=== PATIENT | female | born 2000 | race Caucasian/White ===

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

== ENCOUNTER 2022-08-13 10:51 | Outpatient (CLI) | payer MEDICAID, SELFPAY ==
--- NOTE | 2022-08-13 11:14 | XR_ITS ---
WS: [id number] Exam: XR abdomen 1V* [id number] Date/Time of Exam: 08/13/2022 11:33 AM Reason For Exam: R19.7 - Diarrhea, unspecified No bowel obstruction or free air. No sign of organ enlargement. Regional bony elements appear normal. XR/XR abdomen 1V* [id number] IMPRESSION: 1. No acute abdominal finding. Negative.
--- NOTE | 2022-08-13 11:14 | XRR_ITS ---
PROCEDURE INFORMATION: Exam: XR Entire Spine Exam date and time: 08/13/2022 11:29 AM Age: 22 years old Clinical indication: [place]; Patient HX: Pain in upper and lower back for 1 year, diarrhea, lower abdomen pain, nausea and vomiting every morning, 1 year; Additional info: M43.9 - deforming dorsopathy, unspecified TECHNIQUE: Imaging protocol: XR of the entire spine. Evaluation for scoliosis or surgical evaluation. Views: 4 or 5 views. COMPARISON: CR XR scoliosis survey [id number] 08/10/2017 12:45 PM FINDINGS: Bones/joints: Normal. No acute fracture. Normal alignment. No scoliosis. XR/XR scoliosis survey - [id number] IMPRESSION: Unremarkable spine.
[2022-08-13 11:18] LABS: Erythrocyte Sedimentation Rate 14 mm/hr (0-15)
[2022-08-13 11:22] LABS: Hematocrit 39.8 % (37.0-47.0); Hemoglobin 12.5 g/dL (11.5-15.3)
[2022-08-13 11:38] LABS: Estmated Average Glucose 128; Hemoglobin A1C 6.1 % (4.0-6.0)
[2022-08-13 11:50] LABS: Alanine Aminotransferase 15 U/L (0-33); Alkaline Phosphatase 89 U/L (35-105); Anion Gap 18.9 (5-19); Aspartate Amino Transferase 18 U/L (0-32); Blood Urea Nitrogen 7 mg/dL (6-20); C Reactive Protein 18.4 mg/L (0.0-4.9); Calcium 8.7 mg/dL (8.5-10.5); Carbon Dioxide 20 mmol/L (22-29); Chloride 101 mmol/L (98-107); Chol HDL Ratio 4.26 mg/dL (0.0-4.40); Cholesterol 166 mg/dL (0-200); Ferritin 46 ng/mL (15-150); Glomerular Filtration Rate 203.5 mL/min (90-130); Glucose 116 mg/dL (65-115); HDL Cholesterol 39 mg/dL (60-100); Osmolality Calculated 281 mOsm/kg (285-295); Potassium 3.9 mmol/L (3.5-5.1); Sodium 136 mmol/L (136-145); Total Bilirubin 0.2 mg/dL (0.15-1.2); Triglycerides 406 mg/dL (0-150)
[2022-08-13 12:06] LABS: LDL Cholesterol Direct 71 mg/dL (0-100)
[2022-08-13 12:14] LABS: Free T4 Free Thyroxine 0.89 ng/dL (0.82-1.77)
== END 2022-08-13 10:52 | disposition home or self-care (01) ==
LOC: LAB 10:55
PROVIDERS: PCP Nurse Practitioner; Visit Provider Student in an Organized Health Care Education/Training Program
DX: Z00.00 Encounter for general adult medical examination without abnormal findings (principal); K58.2 Mixed irritable bowel syndrome; R23.1 Pallor; R19.7 Diarrhea, unspecified
CPT/HCPCS: 36415; 72083; 74018; 80053; 80061; 82728; 83036; 83721; 84439; 84443; 85014; 85018; 85651; 86140

== ENCOUNTER 2022-09-03 08:58 | Outpatient (CLI) | payer MEDICAID, SELFPAY ==
--- NOTE | 2022-09-03 12:30 | US_ITS ---
WS: [id number] RIGHT UPPER QUADRANT ULTRASOUND HISTORY: R10.11 - Right upper quadrant pain COMPARISON: Prior CT 06/13/2019 Liver: 16.3 cm in length. Normal size liver. Hypoechoic nodule in the posterior RIGHT lobe the liver just above the kidney measures 2.1 x 1.9 cm. There is no increased vascularity. Is not definitely vira ntified on the prior CT from 06/13/2019. Portal Vein: Normal hepatopetal flow with monophasic waveform. Gallbladder: Normally distended gallbladder with no stones or wall thickening. CBD: 0.3 cm Pancreas: Normal size and echogenicity. Right kidney: 12.2 cm in length. Normal size and echogenicity. No hydronephrosis or mass. Aorta and IVC: Unremarkable abdominal aorta and IVC. No ascites. US/US gall bladder [id number] IMPRESSION: 1. Negative gallbladder. 2. Single hypoechoic mass in the RIGHT lobe the liver measuring 2.1 x 1.9 cm. No abnormality was noted on the prior CT from 2019. This may be complex cysts o r hemangioma. Focal fatty sparing may also be present. Consider ultrasound foll ow-up in [address] abdomen (arterial and portal venous phases).
== END 2022-09-03 08:59 | disposition home or self-care (01) ==
LOC: RAD 09:01
PROVIDERS: PCP Nurse Practitioner; Visit Provider Nurse Practitioner
DX: R10.11 Right upper quadrant pain (principal); R19.7 Diarrhea, unspecified; R16.0 Hepatomegaly, not elsewhere classified
CPT/HCPCS: 76705

== ENCOUNTER 2023-02-28 11:05 | Emergency (ER) | payer MEDICAID, SELFPAY ==
--- NOTE | 2023-02-28 11:15 | XRR_ITS ---
PROCEDURE INFORMATION: Exam: XR Nasal Bones Exam date and time: 02/28/2023 11:26 AM Age: 22 years old Clinical indication: Pain and injury or trauma; Patient HX: Nose pain/swelling after knee to nose TECHNIQUE: Imaging protocol: XR of the nasal bones. Views: Minimum of 3 views COMPARISON: No relevant prior studies available. FINDINGS: Sinuses: Well aerated. No opacification. Bones/joints: No fracture. Soft tissues: Unremarkable. XR/XR nasal bones min 3V [id number] IMPRESSION: Unremarkable.
[2023-02-28 11:17] VITALS: BP 156/78; PULSE 77; RESP 18; TEMP 36.8; O2SAT 98; BMI 29.8
--- NOTE | 2023-02-28 11:22 | ED_ITS ---
HPI - General Adult General: Chief complaint: General Medical Stated complaint: possible broken nose Time Seen by Provider: 02/28/23 11:15 Source: patient Mode of arrival: ambulatory History of Present Illness: 22-year-old female presents emergency room with mild discomfort to the nose she said she was kneed in the nose while wrestling with her brother she did not lose consciousness no other injuries Onset (ago): day(s) Location: head Relieving factors: none Exacerbating factors: none Associated symptoms: Deny confusion or rash Treatments prior to arrival: none Review of Systems ENMT: Denies: nasal discharge, nasal congestion, nasal obstruction or epistaxis Musc: Denies: neck pain Skin/Breast: Denies: rash Neuro: Denies: confusion PFSH ED PFSH: Medical History Adolescent depression Constipation Iron deficiency anemia Irregular periods No pertinent past medical history neghx: htn,dm,thyroid,dvt/pe Surgical History History of esophagogastroduodenoscopy (EGD) (~2019) Family History (Updated 08/20/22 @ 10:12 by YOLY Napoles) Mother Cervical cancer dx age 21 Pre-diabetes Grandmother Diabetes Maternal and Paternal Grandfather Heart disease Maternal Brother Hypertension Denies family history of Colon cancer Ovarian cancer Hypercholesteremia Breast cancer Bleeding disorder Uterine cancer Stroke Social History Substance/Drug Use: never Do you think of yourself as: Straight/Heterosexual Female Reproductive History: Para: 0 Spontaneous abortions: No Physical Exam Const: GENERAL APPEARANCE: cooperative and comfortable ORIENTATION/CONSCIOUSNESS: Yes awake, Yes oriented to person, Yes oriented to place and Yes oriented to time HENMT: COMMON NORMALS: normocephalic and hearing grossly normal bilaterally HEAD & SCALP: normocephalic OTHER: Mild ecchymosis across the bridge of the nose no deformity Resp: COMMON NORMALS: normal respiratory effort, No retractions and No use of accessory muscles Extremity: COMMON NORMALS: normal to inspection, capillary refill normal, no clubbing, cyanosis or edema, no calf tenderness and no pedal edema Neuro: SENSORIUM/ORIENTATION: Yes oriented to person, Yes oriented to place and Yes oriented to time Skin: COMMON NORMALS: no rashes or lesions noted GENERAL SKIN EXAM: no rashes or lesions noted Course Vital Signs: Vital signs: Vital Signs Temperature 98.2 F 02/28/23 11:17 Pulse Rate 77 02/28/23 11:17 Respiratory Rate 18 02/28/23 11:17 Blood Pressure 156/78 02/28/23 11:17 Pulse Oximetry 98 02/28/23 11:17 Oxygen Delivery Me thod Room Air 02/28/23 11:17 MDM - General Adult Medical Decision Making No fracture no deformity no swelling very subtle ecchymosis across the bridge of the nose. X-ray does not show any displaced fracture ice ibuprofen follow-up as needed Medical Records I reviewed the patient's medical records. Lab Data I reviewed the patient's lab results. Radiology Impressions Nasal Bones X-Ray 02/28/23 11:15 IMPRESSION: Unremarkable. XR interpretation done by ED provider, pending radiology final review Discharge Plan Discharge Patient Disposition: Home Clinical Impression: Contusion of nose Condition: Stable Prescriptions: No Action fluticasone propionate 50 mcg/actuation spray,suspension 1 spray intranasal BID 7 Days Qty: 15.8 0RF Rx Instructions: administer into each nostril twice daily; use sterile nasal saline first Xulane 150-35 mcg/24 hr patch weekly 1 patch TRANSDERMA Q7D Qty: 9 3RF hydroxyzine HCl 10 mg tablet 5 mg PO TID PRN (Reason: anxiety) Qty: 30 0RF Rx Instructions: Take 1/2 tablet every 6-8 hours as needed for anxiety dicyclomine 10 mg capsule 10 mg PO TID 30 Days Qty: 90 0RF Rx Instructions: 1 tab by mouth 20-30 mins prior to eating 3 x daily Discharge Orders: Discharge ED (Routine); Ordered 02/28/23 Ordered By: Rodrigo Gomez Referrals: Cassi Rae FNP-BC [Primary Care Provider] - Discharge Diet: Usual diet Discharge Activity: Increase activity as tolerated Patient Instructions: Opioid Safety, Pain Management Coding Level of Care Code 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
[2023-02-28 12:22] VITALS: BP 115/82; PULSE 80; RESP 16; O2SAT 98
== END 2023-02-28 12:23 | disposition home or self-care (01) ==
PROVIDERS: Emergency Provider Family Medicine; PCP Nurse Practitioner
DX: S00.33XA Contusion of nose, initial encounter (principal); W50.0XXA Accidental hit or strike by another person, initial encounter; Y93.83 Activity, rough housing and horseplay
CPT/HCPCS: 70160; 99283

== ENCOUNTER 2023-03-05 10:08 | Outpatient (CLI) | payer MEDICAID, SELFPAY ==
[2023-03-05 10:39] LABS: Estmated Average Glucose 105; Hemoglobin A1C 5.3 % (4.0-6.0)
== END 2023-03-05 10:09 | disposition home or self-care (01) ==
LOC: LAB 10:09
PROVIDERS: PCP Nurse Practitioner; Visit Provider Nurse Practitioner
DX: R73.09 Other abnormal glucose (principal)
CPT/HCPCS: 36415; 83036

== ENCOUNTER → 2023-05-26 16:15 | Outpatient (BNVA) | payer SELFPAY | PROVIDERS: PCP Nurse Practitioner; Visit Provider Nurse Practitioner Women's Health | DX: Z12.4 Encounter for screening for malignant neoplasm of cervix (principal) | CPT/HCPCS: 88175 ==

== ENCOUNTER → 2023-08-11 08:03 | Outpatient (BNVA) | payer MEDICAID, SELFPAY | PROVIDERS: PCP Nurse Practitioner; Visit Provider Nurse Practitioner Women's Health | DX: N92.6 Irregular menstruation, unspecified (principal); Z01.83 Encounter for blood typing | CPT/HCPCS: 81025; 86850; 86900 ==

== ENCOUNTER 2023-08-12 17:19 | Emergency (ER) | payer MEDICAID, SELFPAY ==
--- NOTE | 2023-08-12 17:22 | USR_ITS ---
PROCEDURE INFORMATION: Exam: US First Trimester, Transabdominal and US , Transvaginal Exam date and time: 08/12/2023 5:51 PM Age: 23 years old Clinical indication: Abnormal findings; Abnormal radiologic study of abdomen/pelvis; ; Additional info: US LABS AND CLINICAL REPORTS: Last menstrual period start date: 06/06/2023 Gestational age (Established): 9 w 4 d Estimated due date (Established): 03/12/2024 TECHNIQUE: Imaging protocol: Real-time transabdominal obstetrical ultrasound of the maternal pelvis and a first trimester , less than 14 weeks 0 days, with image documentation. Transvaginal imaging was used for better evaluation of the fetus, adnexa, and/or cervix. COMPARISON: CT abdomen pelvis w con* [id number] 06/13/2019 6:18 AM FINDINGS: Gestation: Single intrauterine gestational sac with normal decidual reaction. Yolk sac measures 6.9 mm. A pole is not definitively visualized. Embryonic/ heart rate: Not applicable. Extra-embryonic membranes/Placenta: No subchorionic bleed. Amniotic fluid: Amniotic fluid and extra-amniotic fluid is normal for gestational age. BIOMETRY: Gestational age (AUA): 7 weeks 0 days , discordant with the reported clinical gestational age. Mean sac diameter: 2.11 cm. EGA (MSD) is 7 w 0 d MATERNAL: Uterus: Unremarkable. Uterus measures 6.6 x 3.9 x 5.2 cm. Cervix: Unremarkable. Right ovary/adnexa: Unremarkable ovary. Right ovary measures 2.7 x 2 point by 1.9 cm with normal color and spectral arterial flow demonstration. Left ovary/adnexa: Not visualized due to overlying bowel gas. Intraperitoneal space: No intraperitoneal free fluid. US/US OB <= 14 weeks fetus [id number] IMPRESSION: Single intrauterine gestational sac proximally 7 weeks 0 days . No pole is identified although large yolk sac is present. The findings may indicate failed /anembryonic but follow-up ultrasound in 11 -14 days and HCG trending recommended if no prior imaging is available to assess for the alternative possibility of early .
[2023-08-12 17:23] VITALS: BP 143/83; PULSE 88; RESP 18; TEMP 36.6; O2SAT 99
--- NOTE | 2023-08-12 17:41 | W.ED.RECABL ---
HPI - Recheck/Abnormal Lab/Rx General: Chief Complaint: Recheck/Abnormal Lab/Rx Stated Complaint: sent by OB, vaginal ultrasound Time Seen by Provider: 08/12/23 17:36 Source: patient Mode of arrival: ambulatory Limitations: no limitations History of Present Illness: 23-year-old female states she is currently 9 weeks she believes that she had an outpatient ultrasound the center today and they did send her here she states that her gestational sac was not matching up with her dates and was having a hard time seeing baby and wanted to have a transvaginal ultrasound. She denies any abdominal pain denies any bleeding denies any vomiting Review of Systems Const: Denies: fever(s), chills, body aches or change in appetite ENMT: Denies: throat pain or dental pain Card: Denies: chest pain Resp: Denies: dyspnea GI: Denies: abdominal pain, nausea, vomiting or diarrhea : Denies: dysuria Musc: Denies: neck pain or back pain Skin/Breast: Denies: rash Neuro: Denies: headache(s) PFSH ED PFSH: Medical History Irregular periods No pertinent past medical history neghx: htn,dm,thyroid,dvt/pe Iron deficiency anemia Constipation Adolescent depression Surgical History History of esophagogastroduodenoscopy (EGD) (~2019) Family History Mother Cervical cancer dx age 21 Pre-diabetes Grandmother Diabetes Maternal and Paternal Grandfather Heart disease Maternal Brother Hypertension Denies family history of Colon cancer Ovarian cancer Hypercholesteremia Breast cancer Bleeding disorder Uterine cancer Stroke Female Reproductive History: Date of last menstrual period: 06/06/23 Para: 0 Spontaneous abortions: No Physical Exam Const: COMMON NORMALS: no acute distress, patient oriented x3 and healthy appearing HENMT: COMMON NORMALS: normocephalic and atraumatic HEAD & SCALP: normocephalic and atraumatic Eye: COMMON NORMALS: conjunctivae normal CONJUNCTIVA: Yes conjunctivae normal Neck/C-Spine: COMMON NORMALS: full ROM and supple Chest: COMMONS NORMALS: normal inspection of the chest Resp: COMMON NORMALS: normal respiratory effort Cardio: COMMON NORMALS: regular rate, regular rhythm and No murmurs present (Cardio) RATE: regular rate RHYTHM: regular rhythm GI: COMMON NORMALS: Normal to inspection, nondistended, normoactive bowel sounds present, Soft to palpation, non-tender and no masses PALPATION: Yes Soft to palpation Extremity: COMMON NORMALS: normal to inspection and full ROM Neuro: COMMON NORMALS: patient oriented x3, moves all extremities and no focal motor deficits Psych: COMMON NORMALS: mental status grossly normal, Normal thought process present and cooperative THOUGHT PROCESS: Normal thought process present Skin: COMMON NORMALS: no rashes or lesions noted and no wounds GENERAL SKIN EXAM: no rashes or lesions noted Course Vital Signs: Vital signs: Vital Signs Temperature 97.9 F 08/12/23 17:23 Pulse Rate 78 08/12/23 18:38 Respiratory Rate 18 08/12/23 17:23 Blood Pressure 116/69 08/12/23 18:38 Pulse Oximetry 98 08/12/23 18:38 Oxygen Delivery Me thod Room Air 08/12/23 18:38 MDM - Recheck/Abnormal Lab/Rx Medical Decision Making Patient presents here with a threatened miscarriage she has no pain no bleeding but ultrasound here did show empty gestational sac its likely due to blighted ovum versus early but her gestational sacs does measure 7 weeks. She is to follow-up with her OB she has an appointment on Thursday inform her she needs to call her tomorrow and inform her she is to have her quantitative is trended along with repeat ultrasound in the future return if worsening she understands agrees to plan Medical Records I reviewed the patient's medical records. Lab Data Radiology Impressions Ultrasound 08/12/23 17:22 IMPRESSION: Single intrauterine gestational sac proximally 7 weeks 0 days . No pole is identified although large yolk sac is present. The findings may indicate failed /anembryonic but follow-up ultrasound in 11 -14 days and HCG trending recommended if no prior imaging is available to assess for the alternative possibility of early . 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
[2023-08-12 18:38] VITALS: BP 116/69; PULSE 78; O2SAT 98
== END 2023-08-12 18:53 | disposition home or self-care (01) ==
PROVIDERS: Emergency Provider Emergency Medicine; PCP Family Medicine
DX: O20.0 Threatened abortion (principal); Z3A.01 Less than 8 weeks gestation of pregnancy
CPT/HCPCS: 36415; 76801; 84702; 99284

== ENCOUNTER → 2023-08-14 12:02 | Outpatient (BNVA) | payer MEDICAID, SELFPAY | PROVIDERS: PCP Family Medicine; Visit Provider Family Medicine | DX: O20.0 Threatened abortion (principal) | CPT/HCPCS: 84144; 84702 ==

== ENCOUNTER → 2023-08-26 12:16 | Outpatient (BNVA) | payer MEDICAID, SELFPAY | PROVIDERS: PCP Family Medicine; Visit Provider Family Medicine | DX: O03.9 Complete or unspecified spontaneous abortion without complication (principal) | CPT/HCPCS: 84144; 84702 ==

== ENCOUNTER 2023-09-13 02:18 | Emergency (ER) | payer MEDICAID, SELFPAY ==
[2023-09-13 02:21] VITALS: BP 136/89; PULSE 91; RESP 20; TEMP 36.8; O2SAT 100
[2023-09-13 02:37] LABS: Basophils # 0.1 10^3/uL (0.0-0.1); Basophils % 0.6 %; Eosinophils # 0.5 10^3/uL (0.0-0.8); Eosinophils % 2.4 %; Hematocrit 44.5 % (36-47); Lymphocytes # 7.2 10^3/uL (0.8-4.8); Lymphocytes % 36.8 %; Mean Corpuscular HGB Conc 32.4 g/dL (30-55); Mean Corpuscular Hemoglobin 29.2 pg (27-33); Mean Corpuscular Volume 90.3 fl (85-98); Mean Platelet Volume 9.6 fL (7.4-10.4); Monocytes # 1.2 10^3/uL (0.2-0.9); Monocytes % 6.2 %; Neutrophils # 10.43 10^3/uL (1.8-7.7); Neutrophils % 53.5 %; Nucleated Red Blood Cells % 0 %; Platelet Count 454 10^3/cmm (157-399); Red Blood Count 4.93 10^6/uL (3.85-5.65); Red Cell Distribution Width 13.2 % (12.1-15.1); White Blood Count 19.49 10^3/uL (3.29-11.43)
[2023-09-13] MEDS: ondansetron 2 mg/ML SDV 2 mL 4 MG IVP (02:40)
[2023-09-13] MEDS: HYDROmorphone 1 mg/mL INJ 1 mL IVP ×3 (02:40→05:34)
[2023-09-13] MEDS: sodium chloride 0.9% 1,000 ML 999 ML IV (02:40)
[2023-09-13 02:46] LABS: INR 0.97 (0.8-1.2)
[2023-09-13 02:47] LABS: Partial Thromboplastin Time 26.9 SECONDS (23.9-36.7)
--- NOTE | 2023-09-13 02:47 | ED_ITS ---
HPI - Female Genitourinary 2 General: Chief complaint: Vaginal Bleeding Stated complaint: 9wks having miscarrige, severe pain Time Seen by Provider: 09/13/23 02:27 History of Present Illness: 23-year-old G1, P0 female at 9 weeks. S he had been previously diagnosed with a blighted ovum. She presents with pelvic cramping that woke her around 1 AM. She notes the pain is severe. She is having passage of blood with clots since that time as well. She says she soaked 2 pads in the last hour to 2 hours. No fever. She has not vomited. Associated symptoms: Reports abdominal pain and nausea Review of Systems 2 Const: Denies: fever(s) Card: Denies: chest pain or palpitations Resp: Denies: dyspnea or productive cough GI: Reports: abdominal pain and nausea; Denies: vomiting : Denies: flank pain or difficulty voiding Musc: Reports: back pain PFSH ED 2 PFSH: Medical History Irregular periods No pertinent past medical history neghx: htn,dm,thyroid,dvt/pe Iron deficiency anemia Constipation Adolescent depression Surgical History History of esophagogastroduodenoscopy (EGD) (~2019) Family History Mother Cervical cancer dx age 21 Pre-diabetes Grandmother Diabetes Maternal and Paternal Grandfather Heart disease Maternal Brother Hypertension Denies family history of Colon cancer Ovarian cancer Hypercholesteremia Breast cancer Bleeding disorder Uterine cancer Stroke Social History Smoking and tobacco/nicotine status: current every day tobacco/nicotine user e- cigarettes E-Cigarette Details: vaporizer device E-cig/vape details: 1 canister per every 3-4 days Alcohol intake: never Substance/Drug Use: current Other substance/drug use details: Stopped THC when she found out she was Do you think of yourself as: Straight/Heterosexual Female Reproductive History: Para: 0 Spontaneous abortions: No Physical Exam 2 Const: GENERAL APPEARANCE: cooperative; not frail appearing HENMT: COMMON NORMALS: normocephalic, atraumatic and Normal external nose present HEAD & SCALP: normocephalic and atraumatic FACE & SINUS: normal facial exam and face symmetric NOSE: Normal external nose present Eye: COMMON NORMALS: Equal, round and reactive pupils present and EOMs intact bilaterally PUPIL: Yes Equal, round and reactive pupils present Neck/C-Spine: GENERAL: Yes trachea midline Chest: CHEST: Yes Symmetrical chest wall rise Resp: COMMON NORMALS: normal respiratory effort, No retractions, No use of accessory muscles and clear to auscultation bilaterally AUSCULTATION: clear to auscultation bilaterally Cardio: COMMON NORMALS: regular rate and regular rhythm RATE: regular rate RHYTHM: regular rhythm GI: COMMON NORMALS: Normal to inspection, nondistended, normoactive bowel sounds present PALPATION: Yes Tenderness to palpation present (GI) (suprapubic) Details: LLQ and RLQ Extremity: COMMON NORMALS: no pedal edema Neuro: JACKIE COMA SCALE: document GCS findings Jackie coma scale eye opening: Spontaneous Saline coma scale verbal response: Orientated Saline coma scale motor response: Obey commands Saline coma scale total score: 15 S ENSORY EXAM: Yes extremities (intact) Psych: COMMON NORMALS: speech normal SPEECH: Yes normal speech Skin: COMMON NORMALS: no rashes or lesions noted GENERAL SKIN EXAM: no rashes or lesions noted Course 2 Vital Signs: Vital signs: Vital Signs Temperature 98.3 F 09/13/23 02:21 Pulse Rate 64 09/13/23 06:02 Respiratory Rate 16 09/13/23 06:02 Blood Pressure 104/56 09/13/23 06:02 Pulse Oximetry 96 09/13/23 06:02 Oxygen Delivery Me thod Room Air 09/13/23 02:21 MDM - Female Medical Decision Making Pain is improved now after dilaudid and toradol. No HB on US. Concern is for incomplete on US which fits clinically. Hb is stable. Vitals are good. Hcg is decreased significantly from prior. Minimal bleeding here. Will allow dc home with repeat Hb and Hcg testing as outpatient to continue her Ab. She will be given pain medication, told to ice or heat, watch for fever, brisk bleeding, etc. To return for any of these. She'll call Dr. Escobedo on Thursday. Lab Data 09/13/23 02:29 09/13/23 02:29 Radiology Impressions Obstetrics Ultrasound 09/13/23 03:16 IMPRESSION: Imaging findings concerning for incomplete miscarriage. Interval follow-up with serial beta HCG and pelvic ultrasound recommended. ADDENDUM: 09/13/23 0520 IMPRESSION: Imaging findings concerning for incomplete miscarriage. Interval follow-up with serial beta HCG and pelvic ultrasound recommended. Laboratory Results WBC 19.49 10^3/uL (3.29-11.43) H 09/13/23 02:29 RBC 4.93 10^6/uL (3.85-5.65) 09/13/23 02:29 Hgb 14.40 g/dL (11.27-16.99) 09/13/23 02: Hct 44.5 % (36-47) 09/13/23 02: MCV 90.3 fl (85-98) 09/13/23 02: MCH 29.2 pg (27-33) 09/13/23 02: MCHC 32.4 g/dL (30-55) 09/13/23 02: RDW 13.2 % (12.1-15.1) 09/13/23 02:29 Plt Count 454 10^3/cmm (157-399) H 09/13/23 02:29 MPV 9.6 fL (7.4-10.4) 09/13/23 02: Neut % (Auto) 53.5 % 09/13/23 02: Lymph % (Auto) 36.8 % 09/13/23 02: Emmons % (Auto) 6.2 % 09/13/23 02: Eos % (Auto) 2.4 % 09/13/23 02:29 Baso % (Auto) 0.6 % 09/13/23 02:29 Neut # (Auto) 10.43 10^3/uL (1.8-7.7) H 09/13/23 02:29 Lymph # (Auto) 7.2 10^3/uL (0.8-4.8) H 09/13/23 02:29 Emmons # (Auto) 1.2 10^3/uL (0.2-0.9) H 09/13/23 02:29 Eos # (Auto) 0.5 10^3/uL (0.0-0.8) 09/13/23 02:29 Baso # (Auto) 0.1 10^3/uL (0.0-0.1) 09/13/23 02: Nucleated RBC % (auto) 0 % 09/13/23 02: Nucleated RBCs # 0.0 /100WBC 09/13/23 02: PT 13.20 SECONDS (12.1-14.9) 09/13/23 02: INR 0.97 (0.8-1.2) 09/13/23 02: APTT 26.9 SECONDS (23.9-36.7) 09/13/23 02:29 Sodium 137 mmol/L (136-145) 09/13/23 02:29 Potassium 3.7 mmol/L (3.5-5.1) 09/13/23 02: Chloride 101 mmol/L (98-107) 09/13/23 02: Carbon Dioxide 22 mmol/L (22-29) 09/13/23 02:29 Anion Gap 17.7 (5-19) 09/13/23 02:29 BUN 13 mg/dL (6-20) 09/13/23 02: Creatinine 0.5 mg/dL (0.5-0.9) 09/13/23 02:29 GFR Calculation 155.7 mL/min (90-130) H 09/13/23 02: Glucose 110 mg/dL (65-115) 09/13/23 02:29 Calculated Osmolality 285 mOsm/kg (285-295) 09/13/23 02: Calcium 9.4 mg/dL (8.5-10.5) 09/13/23 02:29 Total Bilirubin 0.2 mg/dL (0.15-1.2) 09/13/23 02:29 AST 13 U/L (0-32) 09/13/23 02: ALT 11 U/L (0-33) 09/13/23 02:29 Alkaline Phosphatase 73 U/L (35-105) 09/13/23 02: Total Protein 7.4 g/dL (6.6-8.7) 09/13/23 02:29 Albumin 4.1 g/dL (3.5-5.2) 09/13/23 02:29 Globulin 3.3 g/dL (1.3-4.6) 09/13/23 02:29 Ser , Semi-Qnt 4497.00 mIU/mL 09/13/23 02:29 Urine Color Yellow (Yellow) 09/13/23 03:22 Urine Appearance Hazy (CLEAR) A 09/13/23 03:22 Urine pH 7 (5-7) 09/13/23 03:22 Ur Specific [place] 1.010 (1.005-1.030) 09/13/23 03:22 Urine Protein Neg (Negative) 09/13/23 03:22 Urine Glucose (UA) Norm (Normal) 09/13/23 03:22 Urine Ketones Negative (Negative) 09/13/23 03:22 Urine Blood 3+ (Negative) H 09/13/23 03:22 Urine Nitrate Negative (Negative) 09/13/23 03:22 Urine Bilirubin Neg (Negative) 09/13/23 03:22 Urine Urobilinogen Neg mg/dL (Negative) 09/13/23 03:22 Ur Leukocyte Esterase Negative (Negative) 09/13/23 03:22 Urine RBC 15-25 /hpf (0-2) H 09/13/23 03:22 Urine WBC 0-4 /hpf (0-5) H 09/13/23 03:22 Ur Squamous Epith Cells 0-4 /hpf (0-5) H 09/13/23 03:22 Amorphous Sediment 2+ /hpf 09/13/23 03:22 Urine Bacteria 1+ /hpf (NONE) H 09/13/23 03:22 Urine Mucus Trace /hpf 09/13/23 03:22 Blood Type A Positive 09/13/23 02:38 Rho(D) Type Rh positive 09/13/23 02:38 All radiology interpretation(s) finalized by discharge Discharge Plan Discharge Patient Disposition: Home Clinical Impression: Incomplete Condition: Stable Prescriptions: New ketorolac 10 mg tablet 10 mg PO TID PRN (Reason: pain) Qty: 10 0RF Percocet 7.5-325 mg tablet 1 tab PO Q6H PRN (Reason: pain) Qty: 10 0RF No Action DHA 200 mg capsule 200 mg PO DAILY Discharge Orders: Discharge ED (Routine); Ordered 09/13/23 Ordered By: Luis Felipe Patel Referrals: Jimenez Escobedo MD [Primary Care Provider] - 1-3 days Patient Instructions: Miscarriage (ED), Opioid Safety, Pain Management Activity Restrictions/Additional Instructions: Monitor your temperature closely. Return for temperature greater than 100, worsening pain despite treatment, brisk vaginal bleeding, soaking more than 1 pad per hour for more than 4 hours. Call your doctor Thursday morning. They will want to see you. You will need your blood count repeated if you continue to bleed. 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
[2023-09-13 03:04] LABS: Alanine Aminotransferase 11 U/L (0-33); Albumin Level 4.1 g/dL (3.5-5.2); Alkaline Phosphatase 73 U/L (35-105); Anion Gap 17.7 (5-19); Aspartate Amino Transferase 13 U/L (0-32); Blood Urea Nitrogen 13 mg/dL (6-20); Calcium 9.4 mg/dL (8.5-10.5); Carbon Dioxide 22 mmol/L (22-29); Chloride 101 mmol/L (98-107); Creatinine Clr Calc Pharmacy 163.4775; Globulin 3.3 g/dL (1.3-4.6); Glomerular Filtration Rate 155.7 mL/min (90-130); Glucose 110 mg/dL (65-115); Osmolality Calculated 285 mOsm/kg (285-295); Potassium 3.7 mmol/L (3.5-5.1); Sodium 137 mmol/L (136-145); Total Bilirubin 0.2 mg/dL (0.15-1.2); Total Protein 7.4 g/dL (6.6-8.7)
--- NOTE | 2023-09-13 03:16 | USR_ITS ---
PROCEDURE INFORMATION: Exam: US First Trimester, Transabdominal and US , Transvaginal Exam date and time: 09/13/2023 4:22 AM Age: 23 years old Clinical indication: complicated by abdominal or pelvic pain; Lower; First trimester (<14 weeks 0 days); Gestational age or lmp: 14 weeks per patient. ; Additional info: Pelvic pain, vaginal bleeding LABS AND CLINICAL REPORTS: Last menstrual period start date: 06/06/2023 Gestational age (Established): 14 w 1 d Estimated due date (Established): 03/12/2024 TECHNIQUE: Imaging protocol: Real-time transabdominal obstetrical ultrasound of the maternal pelvis and a first trimester , less than 14 weeks 0 days, with image documentation. Transvaginal imaging was used for better evaluation of the fetus, adnexa, and/or cervix. COMPARISON: US OB <= 14 weeks fetus [id number] 08/12/2023 5:51 PM FINDINGS: GESTATION: Gestation: Irregularly-shaped intrauterine gestational sac extending into the lower uterine segment. Small echogenic focus, probably representing pole seen within the endometrial cavity, measuring 0.3 cm. Embryonic/ heart rate: No hardware re-identified. Extra-embryonic membranes/Placenta: Unremarkable. No subchorionic bleed. Amniotic/Chorionic fluid: Amniotic and extra-amniotic fluid are normal for gestational age. BIOMETRY: Gestational age (AUA): 5 weeks 6 days Estimated due date (AUA): 05/09/2024 MATERNAL: Uterus: Unremarkable. Cervix: Cervical length measures 3 cm. Right ovary/adnexa: Unremarkable. Blood flow to right ovary seen.. Left ovary/adnexa: Obscured by lack of adequate acoustic window. Intraperitoneal space: Small amount of fluid seen in the cul-de-sac, likely physiologic. US/US OB <=14 wk fetus w transvag IMPRESSION: Imaging findings concerning for incomplete miscarriage. Interval follow-up with serial beta HCG and pelvic ultrasound recommended.
[2023-09-13 03:32] VITALS: BP 128/73; PULSE 73; RESP 20; O2SAT 97
[2023-09-13 03:43] LABS: Add Urine Microscopic? YES; Amorphous Sediment Urine 2+ /hpf; Bacteria Urine 1+ /hpf; Bilirubin Urine Neg (Negative); Blood Urine 3+ (Negative); Glucose Urine UA Norm (Normal); Ketones Urine Negative (Negative); Leukocyte Esterase Urine Negative (Negative); Mucus Urine TRACE /hpf; Nitrate Urine Negative (Negative); Protein Urine Neg (Negative); RBC Urine 15-25 /hpf (0-2); Squamous Epithelial Cell Urine 0-4 /hpf (0-5); Urine Appearance Hazy (CLEAR); Urine Color Yellow (Yellow); Urobilinogen Urine Neg (Negative); WBC Urine 0-4 /hpf (0-5); pH Urine 7 (5-7)
[2023-09-13 04:04] VITALS: BP 108/77; PULSE 68; RESP 18; O2SAT 96
[2023-09-13 04:35] VITALS: BP 107/58; PULSE 86; RESP 16; O2SAT 98
[2023-09-13 05:30] VITALS: BP 102/57; PULSE 65; RESP 16; O2SAT 96
[2023-09-13] MEDS: ketorolac 30 mg/mL INJ IVP (05:34)
[2023-09-13 06:02] VITALS: BP 104/56; PULSE 64; RESP 16; O2SAT 96
== END 2023-09-13 06:21 | disposition home or self-care (01) ==
PROVIDERS: Emergency Provider Emergency Medicine; PCP Family Medicine
DX: O03.4 Incomplete spontaneous abortion without complication (principal); F17.290 Nicotine dependence, other tobacco product, uncomplicated
CPT/HCPCS: 76801; 76817; 80053; 81001; 84702; 85025; 85610; 85730; 86900; 96361; 96374; 96375; 96376; 99284; J1170; J1885; J2405; J7030

== ENCOUNTER 2023-09-14 07:31 | Emergency (ER) | payer MEDICAID, SELFPAY ==
--- NOTE | 2023-09-14 07:43 | ED_ITS ---
HPI - 2 General: Chief complaint: Vaginal Bleeding Stated complaint: miscarriage, vag bleeding Time Seen by Provider: 09/14/23 07:34 Source: patient Mode of arrival: ambulatory Limitations: no limitations History of Present Illness: 23-year-old female who was diagnosed wit h a miscarriage 6 days ago states she had bleeding since and was seen here yesterday states that she has had increased bleeding through the night with increased pain. She rates her pain a 8 out of 10 it is cramping and lower. Associated symptoms: Reports abdominal pain; Deny dysuria, headache(s), nausea or vomiting Review of Systems 2 Const: Denies: fever(s), chills, body aches or change in appetite ENMT: Denies: throat pain or dental pain Card: Denies: chest pain Resp: Denies: dyspnea GI: Reports: abdominal pain; Denies: nausea, vomiting or diarrhea : Reports: vaginal bleeding; Denies: dysuria Musc: Denies: neck pain or back pain Skin/Breast: Denies: rash Neuro: Denies: headache(s) PFSH ED 2 PFSH: Medical History Irregular periods No pertinent past medical history neghx: htn,dm,thyroid,dvt/pe Iron deficiency anemia Constipation Adolescent depression Surgical History History of esophagogastroduodenoscopy (EGD) (~2019) Family History Mother Cervical cancer dx age 21 Pre-diabetes Grandmother Diabetes Maternal and Paternal Grandfather Heart disease Maternal Brother Hypertension Denies family history of Colon cancer Ovarian cancer Hypercholesteremia Breast cancer Bleeding disorder Uterine cancer Stroke Social History Smoking and tobacco/nicotine status: current every day tobacco/nicotine user e- cigarettes E-Cigarette Details: vaporizer device E-cig/vape details: 1 canister per every 3-4 days Alcohol intake: never Substance/Drug Use: current Other substance/drug use details: Stopped THC when she 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 she was Do you think of yourself as: Straight/Heterosexual Female Reproductive History: Para: 0 Spontaneous abortions: No Physical Exam 2 Const: COMMON NORMALS: no acute distress, patient oriented x3 and healthy appearing HENMT: COMMON NORMALS: normocephalic and atraumatic HEAD & SCALP: n ormocephalic and atraumatic Neck/C-Spine: COMMON NORMALS: full ROM and supple Chest: COMMONS NORMALS: normal inspection of the chest Resp: COMMON NORMALS: normal respiratory effort Cardio: COMMON NORMALS: regular rate, regular rhythm and No murmurs present (Cardio) RATE: regular rate RHYTHM: regular rhythm GI: COMMON NORMALS: Normal to inspection, nondistended, normoactive bowel sounds present, Soft to palpation, non-tender and no masses PALPATION: Yes Soft to palpation Extremity: COMMON NORMALS: normal to inspection and full ROM Neuro: COMMON NORMALS: patient oriented x3, moves all extremities and no focal motor deficits Psych: COMMON NORMALS: mental status grossly normal, Normal thought process present and cooperative THOUGHT PROCESS: Normal thought process present Skin: COMMON NORMALS: no rashes or lesions noted and no wounds GENERAL SKIN EXAM: no rashes or lesions noted Course 2 Vital Signs: Vital signs: Vital Signs Temperature 98.0 F 09/14/23 08:41 Pulse Rate 78 09/14/23 09:40 Respiratory Rate 16 09/14/23 09:40 Blood Pressure 119/98 09/14/23 09:40 Pulse Oximetry 98 09/14/23 09:40 MDM - OB/Uterine Contractions Medical Decision Making Patient presents here with vaginal bleeding I did a pelvic exam did remove a large clot from her cervix her bleeding is much improved since and give her dose of Cytotec here as well hemoglobin stable she feels much improved she stable for discharge she is to follow-up with Dr. Escobedo return if worsening she understands agrees to plan. Medical Records I reviewed the patient's medical records. Lab Data I reviewed the patient's lab results. 09/14/23 07:54 Laboratory Results WBC 13.51 10^3/uL (3.29-11.43) H 09/14/23 07:54 RBC 4.56 10^6/uL (3.85-5.65) 09/14/23 07:54 Hgb 13.50 g/dL (11.27-16.99) 09/14/23 07:54 Hct 41.2 % (36-47) 09/14/23 07:54 MCV 90.4 fl (85-98) 09/14/23 07:54 MCH 29.6 pg (27-33) 09/14/23 07:54 MCHC 32.8 g/dL (30-55) 09/14/23 07:54 RDW 13.5 % (12.1-15.1) 09/14/23 07:54 Plt Count 418 10^3/cmm (157-399) H 09/14/23 07:54 MPV 9.7 fL (7.4-10.4) 09/14/23 07:54 Neut % (Auto) 60.3 % 09/14/23 07:54 Lymph % (Auto) 28.8 % 09/14/23 07:54 Heard % (Auto) 6.9 % 09/14/23 07:54 Eos % (Auto) 2.9 % 09/14/23 07:54 Baso % (Auto) 0.7 % 09/14/23 07:54 Neut # (Auto) 8.16 10^3/uL (1.8-7.7) H 09/14/23 07:54 Lymph # (Auto) 3.9 10^3/uL (0.8-4.8) 09/14/23 07:54 Heard # (Auto) 0.9 10^3/uL (0.2-0.9) 09/14/23 07:54 Eos # (Auto) 0.4 10^3/uL (0.0-0.8) 09/14/23 07:54 Baso # (Auto) 0.1 10^3/uL (0.0-0.1) 09/14/23 07:54 Nucleated RBC % (auto) 0 % 09/14/23 07:54 Nucleated RBCs # 0.0 /100WBC 09/14/23 07:54 Ser , Semi-Qnt 2414.00 mIU/mL 09/14/23 07:54 No radiology studies performed this visit Discharge Plan Discharge Patient Disposition: Home Clinical Impression: Miscarriage Condition: Stable Prescriptions: No Action Tylenol Ex Str Rapid Release 500 mg Tablet 1,000 mg PO Q6H PRN (Reason: Pain) ibuprofen 200 mg Tablet 400 - 600 mg PO Q6H PRN (Reason: Pain) ketorolac 10 mg tablet 10 mg PO TID PRN (Reason: pain) Qty: 10 0RF oxycodone-acetaminophen [Percocet] 7.5-325 mg tablet 1 tab PO Q6H PRN (Reason: pain) Qty: 10 0RF Discharge Orders: Discharge ED (Routine); Ordered 09/14/23 Ordered By: Leela Stuart Referrals: Jimenez Escobedo MD [Primary Care Provider] - Discharge Diet: Advance as tolerated Discharge Activity: Resume usual activity Patient Instructions: Miscarriage (ED) Coding Level of Care Code ED Craft Worker for Varghese Chamberlain
[2023-09-14 07:55] VITALS: RESP 26; O2SAT 100
[2023-09-14] MEDS: HYDROmorphone 1 mg/mL INJ 1 mL IVP (07:55)
[2023-09-14] MEDS: ondansetron 2 mg/ML SDV 2 mL 4 MG IVP (07:57)
[2023-09-14] MEDS: sodium chloride 0.9% 1,000 ML 999 ML IV (08:03)
[2023-09-14] MEDS: miSOPROStol 200 mcg Tablet 800 MCG PR (08:04)
[2023-09-14 08:11] LABS: Basophils # 0.1 10^3/uL (0.0-0.1); Basophils % 0.7 %; Eosinophils # 0.4 10^3/uL (0.0-0.8); Eosinophils % 2.9 %; Hematocrit 41.2 % (36-47); Lymphocytes # 3.9 10^3/uL (0.8-4.8); Lymphocytes % 28.8 %; Mean Corpuscular HGB Conc 32.8 g/dL (30-55); Mean Corpuscular Hemoglobin 29.6 pg (27-33); Mean Corpuscular Volume 90.4 fl (85-98); Mean Platelet Volume 9.7 fL (7.4-10.4); Monocytes # 0.9 10^3/uL (0.2-0.9); Monocytes % 6.9 %; Neutrophils # 8.16 10^3/uL (1.8-7.7); Neutrophils % 60.3 %; Nucleated Red Blood Cells % 0 %; Platelet Count 418 10^3/cmm (157-399); Red Blood Count 4.56 10^6/uL (3.85-5.65); Red Cell Distribution Width 13.5 % (12.1-15.1); White Blood Count 13.51 10^3/uL (3.29-11.43)
[2023-09-14 08:41] VITALS: BP 120/71; PULSE 65; TEMP 36.7; O2SAT 99
[2023-09-14 09:40] VITALS: BP 119/98; PULSE 78; RESP 16; O2SAT 98
== END 2023-09-14 09:42 | disposition home or self-care (01) ==
PROVIDERS: Emergency Provider Emergency Medicine; PCP Family Medicine
DX: O03.9 Complete or unspecified spontaneous abortion without complication (principal); F17.290 Nicotine dependence, other tobacco product, uncomplicated
CPT/HCPCS: 84702; 85025; 96361; 96374; 96375; 99284; J1170; J2405; J7030

== ENCOUNTER 2023-10-11 21:12 | Emergency (ER) | payer MEDICAID, SELFPAY ==
[2023-10-11 21:21] VITALS: BP 108/73; PULSE 93; RESP 17; TEMP 36.6; O2SAT 99; BMI 28.9
--- NOTE | 2023-10-11 21:42 | USR_ITS ---
PROCEDURE INFORMATION: Exam: US Pelvis, Transvaginal, Non-obstetric Exam date and time: 10/11/2023 10:57 PM Age: 23 years old Clinical indication: Pelvic pain; Additional info: Abnormal vaginal bleeding TECHNIQUE: Imaging protocol: Real-time transvaginal pelvic (non-obstetric) ultrasound with image documentation. Transvaginal imaging was used for better evaluation of the endometrium, adnexa, and/or cervix. COMPARISON: US OB <=14 wk fetus w transvag 09/13/2023 4:22 AM FINDINGS: Uterus: Uterus measures 6.7 x 3.6 x 3.9 cm. Endometrium is thickened measuring up to 1.8 cm. There are multiple enlarged serpiginous vessels in the endometrium with vigorous blood flow. Right ovary/adnexa: Right ovary measures 3.6 x 2.0 x 2.8 cm with physiologic morphology. Color Doppler flow imaging and spectral analysis confirm appropriate arterial and venous waveforms. Left ovary/adnexa: Left ovary could not be visualized despite the use of endovaginal imaging. Urinary bladder: Urinary bladder is limited. Intraperitoneal space: There is low volume pelvic free fluid. US/ transvaginal [id number] IMPRESSION: Abnormally hypervascular endometrial tissue. There appear to be defined serpiginous blood vessels. Vascularity is greater than expected for retained products of conception. Differential diagnosis includes molar or vascular malformation. Correlate with any instrumentation and with HCG level. Gynecology consultation is warranted.
--- NOTE | 2023-10-11 21:56 | W.ED.FEMALGU ---
HPI - Female Genitourinary General: Chief complaint: Urogenital-Female Stated complaint: Vaginal Bleeding Time Seen by Provider: 10/11/23 21:40 History of Present Illness: 23-year-old female comes in today for complaints of vaginal bleeding. Patient had a miscarriage with the last ultrasound done on 09/12 noticing incomplete miscarriage at the time. Patient was treated with medication to induce discharge of the fetus. Patient had bled for about 2 weeks after treatment. Patient reports that she has been stopped bleeding for the last 2 weeks and then had intercourse today and since then has started having a large amount of bleeding. Patient reports several clots passing. Review of Systems General: Reports: 10 or more systems reviewed and unremarkable except in HPI and below PFSH ED PFSH: Medical History Irregular periods No pertinent past medical history neghx: htn,dm,thyroid,dvt/pe Iron deficiency anemia Constipation Adolescent depression Surgical History History of esophagogastroduodenoscopy (EGD) (~2019) Family History Mother Cervical cancer dx age 21 Pre-diabetes Grandmother Diabetes Maternal and Paternal Grandfather Heart disease Maternal Brother Hypertension Denies family history of Colon cancer Ovarian cancer Hypercholesteremia Breast cancer Bleeding disorder Uterine cancer Stroke Social History Smoking and tobacco/nicotine status: current every day tobacco/nicotine user e-cigarettes E-Cigarette Details: vaporizer device E-cig/vape details: 1 canister per every 3-4 days Alcohol intake: never Substance/Drug Use: current Other substance/drug use details: Stopped THC when she found out she was Do you think of yourself as: Straight/Heterosexual Female Reproductive History: Para: 0 Spontaneous abortions: No Physical Exam Const: COMMON NORMALS: alert HENMT: COMMON NORMALS: normocephalic HEAD & SCALP: normocephalic Neck/C-Spine: COMMON NORMALS: full ROM Chest: COMMONS NORMALS: normal palpation of entire chest wall Resp: COMMON NORMALS: normal respiratory effort Cardio: COMMON NORMALS: regular rate and regular rhythm RATE: regular rate RHYTHM: regular rhythm GI: COMMON NORMALS: Soft to palpation PALPATION: Yes Soft to palpation Back/Pelvis: COMMON NORMALS: thoracic and lumbar spine normal to inspection Extremity: COMMON NORMALS: full ROM Neuro: SENSORIUM/ORIENTATION: Yes alert Skin: COMMON NORMALS: turgor normal GENERAL SKIN EXAM: turgor normal Course Vital Signs: Vital signs: Vital Signs Temperature 98 F 10/11/23 21:21 Pulse Rate 66 10/11/23 23:41 Respiratory Rate 14 10/11/23 23:41 Blood Pressure 120/61 10/11/23 23:41 Pulse Oximetry 94 10/11/23 23:41 Oxygen Delivery Me thod Room Air 10/11/23 23:41 MDM - Female Medical Decision Making 23-year-old female comes in today for complaints of vaginal bleeding and discomfort after intercourse tonight. Patient had a large amount of bleeding out. On exam abdomen soft. Vital signs are normal. Patient is alert and oriented. Differential diagnosis is missed spontaneous , retained products, molar , vascular malformation. Hemoglobin is 12.8. CMP is normal. Transvaginal ultrasound noted some hypervascular endometrial tissue and greater than expected vascularity for retained conception products. Recommended correlation with hCG to rule out molar or vascular malformation. Discussed this with Dr. Bain who recommended that we talk with Dr. Musa on-call LIFEST[facility] COORDINATOR. Discussed patient with Dr. Musa and she recommended patient follow-up with the [facility] clinic for further evaluation. hCG was negative and she did not feel that it was a molar and needed further treatment in the ER. Lab Data 10/11/23 21:47 10/11/23 21:47 Radiology Impressions Transvaginal US 10/11/23 21:42 IMPRESSION: Abnormally hypervascular endometrial tissue. There appear to be defined serpiginous blood vessels. Vascularity is greater than expected for retained products of conception. Differential diagnosis includes molar or vascular malformation. Correlate with any instrumentation and with HCG level. Gynecology consultation is warranted. Laboratory Results WBC 13.61 10^3/uL (3.29-11.43) H 10/11/23 21:47 RBC 4.34 10^6/uL (3.85-5.65) 10/11/23 21:47 Hgb 12.80 g/dL (11.27-16.99) 10/11/23 21:47 Hct 38.4 % (36-47) 10/11/23 21:47 MCV 88.5 fl (85-98) 10/11/23 21:47 MCH 29.5 pg (27-33) 10/11/23 21:47 MCHC 33.3 g/dL (30-55) 10/11/23 21:47 RDW 12.6 % (12.1-15.1) 10/11/23 21:47 Plt Count 422 10^3/cmm (157-399) H 10/11/23 21:47 MPV 9.8 fL (7.4-10.4) 10/11/23 21:47 Neut % (Auto) 59.3 % 10/11/23 21:47 Lymph % (Auto) 32.3 % 10/11/23 21:47 Cowley % (Auto) 6.2 % 10/11/23 21:47 Eos % (Auto) 1.2 % 10/11/23 21:47 Baso % (Auto) 0.7 % 10/11/23 21:47 Neut # (Auto) 8.06 10^3/uL (1.8-7.7) H 10/11/23 21:47 Lymph # (Auto) 4.4 10^3/uL (0.8-4.8) 10/11/23 21:47 Cowley # (Auto) 0.9 10^3/uL (0.2-0.9) 10/11/23 21:47 Eos # (Auto) 0.2 10^3/uL (0.0-0.8) 10/11/23 21:47 Baso # (Auto) 0.1 10^3/uL (0.0-0.1) 10/11/23 21:47 Nucleated RBC % (auto) 0 % 10/11/23 21:47 Nucleated RBCs # 0.0 /100WBC 10/11/23 21:47 Sodium 135 mmol/L (136-145) L 10/11/23 21:47 Potassium 3.7 mmol/L (3.5-5.1) 10/11/23 21:47 Chloride 102 mmol/L (98-107) 10/11/23 21:47 Carbon Dioxide 22 mmol/L (22-29) 10/11/23 21:47 Anion Gap 14.7 (5-19) 10/11/23 21:47 BUN 12 mg/dL (6-20) 10/11/23 21:47 Creatinine 0.6 mg/dL (0.5-0.9) 10/11/23 21:47 GFR Calculation 126.2 mL/min (90-130) 10/11/23 21:47 Glucose 130 mg/dL (65-115) H 10/11/23 21:47 Calculated Osmolality 282 mOsm/kg (285-295) L 10/11/23 21:47 Calcium 9.2 mg/dL (8.5-10.5) 10/11/23 21:47 Total Bilirubin 0.2 mg/dL (0.15-1.2) 10/11/23 21: AST 14 U/L (0-32) 10/11/23 21:47 ALT 7 U/L (0-33) 10/11/23 21:47 Alkaline Phosphatase 75 U/L (35-105) 10/11/23 21:47 Total Protein 6.9 g/dL (6.6-8.7) 10/11/23 21:47 Albumin 4.1 g/dL (3.5-5.2) 10/11/23 21: Globulin 2.8 g/dL (1.3-4.6) 10/11/23 21:47 HCG, Qual Negative (Negative) 10/11/23 21:47 Urine Color Yellow (Yellow) 10/11/23 23:09 Urine Appearance Cloudy (CLEAR) A 10/11/23 23:09 Urine pH 7 (5-7) 10/11/23 23:09 Ur Specific [employer] 1.010 (1.005-1.030) 10/11/23 23:09 Urine Protein Neg (Negative) 10/11/23 23:09 Urine Glucose (UA) Norm (Normal) 10/11/23 23:09 Urine Ketones 1+ (Negative) H 10/11/23 23:09 Urine Blood 3+ (Negative) H 10/11/23 23:09 Urine Nitrate Negative (Negative) 10/11/23 23:09 Urine Bilirubin Neg (Negative) 10/11/23 23:09 Urine Urobilinogen Neg mg/dL (Negative) 10/11/23 23:09 Ur Leukocyte Esterase Negative (Negative) 10/11/23 23:09 Urine RBC 25-40 /hpf (0-2) H 10/11/23 23:09 Urine WBC 0-4 /hpf (0-5) H 10/11/23 23:09 Ur Squamous Epith Cells 0-4 /hpf (0-5) H 10/11/23 23:09 Amorphous Sediment Trace /hpf 10/11/23 23:09 Urine Bacteria 1+ /hpf (NONE) H 10/11/23 23:09 Urine Mucus 1+ /hpf 10/11/23 23:09 Blood Type A Positive 10/11/23 23:45 Rho(D) Type Rh positive 10/11/23 23:45 Antibody Screen Negative 10/11/23 23:45 All radiology interpretation(s) finalized by discharge Discharge Plan Discharge Patient Disposition: Home Clinical Impression: DUB (dysfunctional uterine bleeding), History of miscarriage Condition: Stable Prescriptions: No Action ferrous sulfate 325 mg (65 mg iron) tablet 325 mg PO BID Qty: 30 0RF Tylenol Ex Str Rapid Release 500 mg Tablet 1,000 mg PO Q6H PRN (Reason: Pain) ibuprofen 200 mg Tablet 400 - 600 mg PO Q6H PRN (Reason: Pain) ketorolac 10 mg tablet 10 mg PO TID PRN (Reason: pain) Qty: 10 0RF oxycodone-acetaminophen [Percocet] 7.5-325 mg tablet 1 tab PO Q6H PRN (Reason: pain) Qty: 10 0RF Discharge Orders: Discharge ED (Routine); Ordered 10/12/23 Ordered By: Morgan Souza Referrals: Jimenez Escobedo MD [Primary Care Provider] - Discharge Diet: Usual diet Activity Restrictions/Additional Instructions: Follow-up with [facility] CO[facility] for further treatment Coding Level of Care Code ED Plant Engineering Supervisor for Deang Bulmaro
[2023-10-11 21:57] LABS: Basophils # 0.1 10^3/uL (0.0-0.1); Basophils % 0.7 %; Eosinophils # 0.2 10^3/uL (0.0-0.8); Eosinophils % 1.2 %; Hematocrit 38.4 % (36-47); Lymphocytes # 4.4 10^3/uL (0.8-4.8); Lymphocytes % 32.3 %; Mean Corpuscular HGB Conc 33.3 g/dL (30-55); Mean Corpuscular Hemoglobin 29.5 pg (27-33); Mean Corpuscular Volume 88.5 fl (85-98); Mean Platelet Volume 9.8 fL (7.4-10.4); Monocytes # 0.9 10^3/uL (0.2-0.9); Monocytes % 6.2 %; Neutrophils # 8.06 10^3/uL (1.8-7.7); Neutrophils % 59.3 %; Nucleated Red Blood Cells % 0 %; Platelet Count 422 10^3/cmm (157-399); Red Blood Count 4.34 10^6/uL (3.85-5.65); Red Cell Distribution Width 12.6 % (12.1-15.1); White Blood Count 13.61 10^3/uL (3.29-11.43)
[2023-10-11 22:09] LABS: Alanine Aminotransferase 7 U/L (0-33); Albumin Level 4.1 g/dL (3.5-5.2); Alkaline Phosphatase 75 U/L (35-105); Anion Gap 14.7 (5-19); Aspartate Amino Transferase 14 U/L (0-32); Blood Urea Nitrogen 12 mg/dL (6-20); Calcium 9.2 mg/dL (8.5-10.5); Carbon Dioxide 22 mmol/L (22-29); Chloride 102 mmol/L (98-107); Creatinine Clr Calc Pharmacy 137.5059; Globulin 2.8 g/dL (1.3-4.6); Glomerular Filtration Rate 126.2 mL/min (90-130); Glucose 130 mg/dL (65-115); Osmolality Calculated 282 mOsm/kg (285-295); Potassium 3.7 mmol/L (3.5-5.1); Sodium 135 mmol/L (136-145); Total Bilirubin 0.2 mg/dL (0.15-1.2); Total Protein 6.9 g/dL (6.6-8.7)
[2023-10-11 22:16] LABS: HCG, Serum Qual Negative (Negative)
[2023-10-11] MEDS: sodium chloride 0.9% 500 ML 999 ML IV (22:35)
[2023-10-11] MEDS: ondansetron 2 mg/ML SDV 2 mL 4 MG IVP (22:36)
[2023-10-11] MEDS: tranexamic acid 1,000 MG/100 ML PREMIX 600 MG IV (22:39)
[2023-10-11 22:40] VITALS: BP 112/75; PULSE 62; RESP 14; O2SAT 96
[2023-10-11 23:22] LABS: Add Urine Microscopic? YES; Bilirubin Urine Neg (Negative); Blood Urine 3+ (Negative); Glucose Urine UA Norm (Normal); Ketones Urine 1+ (Negative); Leukocyte Esterase Urine Negative (Negative); Nitrate Urine Negative (Negative); Protein Urine Neg (Negative); Urine Appearance Cloudy (CLEAR); Urine Color Yellow (Yellow); Urobilinogen Urine Neg (Negative); pH Urine 7 (5-7)
[2023-10-11 23:23] LABS: Add Urine Culture? Yes; Amorphous Sediment Urine TRACE /hpf; Bacteria Urine 1+ /hpf; Mucus Urine 1+ /hpf; RBC Urine 25-40 /hpf (0-2); Squamous Epithelial Cell Urine 0-4 /hpf (0-5); WBC Urine 0-4 /hpf (0-5)
[2023-10-11 23:41] VITALS: BP 120/61; PULSE 66; RESP 14; O2SAT 94
[2023-10-12 00:52] VITALS: BP 126/64; PULSE 65; RESP 14; O2SAT 96
--- NOTE | 2023-10-12 13:11 | DCPLANNER ---
message sent to [facility] for er f/u
== END 2023-10-12 00:50 | disposition home or self-care (01) ==
PROVIDERS: Emergency Provider Nurse Practitioner Family; PCP Family Medicine
DX: N93.8 Other specified abnormal uterine and vaginal bleeding (principal); F17.290 Nicotine dependence, other tobacco product, uncomplicated
CPT/HCPCS: 36415; 76830; 80053; 81001; 84703; 85025; 86850; 86900; 87086; 96365; 96375; 99284; J2405; J7040

== ENCOUNTER 2023-10-13 09:30 | Observation (INO) | payer MEDICAID, SELFPAY ==
[2023-10-13 09:38] VITALS: BP 147/99; PULSE 112; RESP 36; TEMP 36.6; O2SAT 100; BMI 28.9
--- NOTE | 2023-10-13 09:39 | ED_ITS ---
HPI - 2 General: Chief complaint: Vaginal Bleeding Stated complaint: vaginal bleeding Time Seen by Provider: 10/13/23 09:32 Source: patient Mode of arrival: ambulatory History of Present Illness: 23-year-old female who presents emergenc y room complaining of abnormal uterine bleeding. In late July she was found to have a spontaneous AB. Her beta-hCG at that time was 41,000 and then began to drop afterwards. She had serial beta- hCG is down to 2400 on September 13. She was seen 2 days ago was having more bleeding and ultrasound was done and there is a question of a possible molar however at that time her serum qualitative beta-hCG was negative which would place it below 5. She was discharged home to have follow-up as an outpatient with Dr. Escobedo possible referral to gynecology. She returns today because of very heavy bleeding lightheadedness and generalized weak feeling that began suddenly this morning. On arrival here she bled through her clothing. MD Complaint: vaginal bleeding Pain Consistency: constant Location: pelvis Severity: mild Quality: Cramping Relieving factors: none Exacerbating factors: none Vaginal bleeding: heavy Associated symptoms: Deny abdominal pain, dyspareunia, dysuria, headache(s), malaise, nausea, rash, seizures, short of breath, syncope, vaginal bleeding, vaginal discharge, visual changes, vomiting or weakness Review of Systems 2 Const: Denies: fever(s), chills or malaise Card: Denies: chest pain or syncope Resp: Denies: dyspnea GI: Denies: abdominal pain, nausea or vomiting : Denies: dysuria, urinary frequency, urinary urgency, vaginal discharge or dyspareunia Musc: Denies: neck pain or back pain Skin/Breast: Denies: rash Neuro: Denies: headache(s) PFSH ED 2 PFSH: Medical History Irregular periods No pertinent past medical history neghx: htn,dm,thyroid,dvt/pe Iron deficiency anemia Constipation Adolescent depression Surgical History History of esophagogastroduodenoscopy (EGD) (~2019) Family History Mother Cervical cancer dx age 21 Pre-diabetes Grandmother Diabetes Maternal and Paternal Grandfather Heart disease Maternal Brother Hypertension Denies family history of Colon cancer Ovarian cancer Hypercholesteremia Breast cancer Bleeding disorder Uterine cancer Stroke Social History Smoking and tobacco/nicotine status: current every day tobacco/nicotine user e- cigarettes E-Cigarette Details: vaporizer device E-cig/vape details: 1 canister per every 3-4 days Alcohol intake: never Substance/Drug Use: current Other substance/drug use details: Stopped THC when she found out she was Do you think of yourself as: Straight/Heterosexual Female Reproductive History: Para: 0 Spontaneous abortions: No Physical Exam 2 Const: GENERAL APPEARANCE: cooperative and comfortable O RIENTATION/CONSCIOUSNESS: Yes awake, Yes oriented to person, Yes oriented to place and Yes oriented to time HENMT: COMMON NORMALS: normocephalic, atraumatic and hearing grossly normal bilaterally HEAD & SCALP: normocephalic and atraumatic Resp: COMMON NORMALS: normal respiratory effort, No retractions, No use of accessory muscles and clear to auscultation bilaterally AUSCULTATION: clear to auscultation bilaterally Cardio: COMMON NORMALS: regular rate, regular rhythm and No murmurs present (Cardio) RATE: regular rate RHYTHM: regular rhythm GI: COMMON NORMALS: Soft to palpation and No hepatosplenomegaly present A USCULTATION: Yes normoactive bowel sounds PALPATION: Yes Soft to palpation, No Tenderness to palpation present (GI), No Guarding due to palpation present (GI) and Yes No hepatosplenomegaly present : SPECULUM EXAM - VAGINA: No vaginal bleeding OB/EXTERNAL & SPECULUM: No vaginal bleeding OTHER: Pelvic exam with nurse present patient placed in dorsolithotomy position speculum introduced there is a large amount of blood within the vaginal vault this was removed with a ring forceps and with chamberlain swabs. Eventually able to clear the vaginal vault there is no active bleeding from the cervix her risk was observed for short period of time no further bleeding noted. No cervical motion tenderness and no purulent discharge from the cervix. Extremity: COMMON NORMALS: normal to inspection, capillary refill normal, no clubbing, cyanosis or edema, no calf tenderness and no pedal edema Neuro: SENSORIUM/ORIENTATION: Yes oriented to person, Yes oriented to place and Yes oriented to time Skin: COMMON NORMALS: no rashes or lesions noted GENERAL SKIN EXAM: no rashes or lesions noted Course 2 Vital Signs: Vital signs: Vital Signs Temperature 97.9 F 10/13/23 09:38 Pulse Rate 87 10/13/23 12:26 Respiratory Rate 21 H 10/13/23 10:06 Blood Pressure 128/97 10/13/23 12:26 Pulse Oximetry 100 10/13/23 12:26 Oxygen Delivery Me thod Room Air 10/13/23 12:27 MDM - OB/Uterine Contractions Medical Decision Making Patient has had intermittent vaginal bleeding now getting heavier this has been going on since late July when she was first noted to have a miscarriage. Your beta-hCG was followed down to 2400 but she did not complete any beta-hCGs past that. She was seen in the emergency room 2 days ago it is serum qualitative done that was negative which places it below 5. Ultrasound at that time there was a comment on the report about a possible molar . This was thought unlikely by the ED provider at the time because her beta-hCG was negative. She returned today because of the heavy bleeding when I did a pelvic exam there is no active bleeding from the os although there was a significant amount of blood on her clothing is soaked through and a significant mount of blood noted in the vaginal vault however there is no bleeding no purulent drainage from the cervical os. Reviewed all the findings with the patient and with her mother and her boyfriend. We also reviewed with Dr. Farley who is on-call for gynecology. Dr. Farley came and seen the patient he recommends medical treatment for abnormal uterine bleeding. The ultrasound today that the radiologist read as possible retained products of conception's Dr. Farley did not think this was likely and did not feel a emergent D&C was warranted. After Dr. Farley and see the patient she expelled another fairly large amount of blood. Discussed with Dr. Farley again will place patient on observation. Her hemoglobin is actually up from when she was seen a couple days ago. She has been following with Dr. Escobedo of this as well will also contacted him he is aware the patient is inpatient and is already been in consultation with Dr. Farley. Reviewed further findings with the patient and plan and they are in agreement. Medical Records I reviewed the patient's medical records. Lab Data I reviewed the patient's lab results. 10/13/23 09:30 10/13/23 09:30 Radiology Impressions Transvaginal US 10/13/23 09:42 IMPRESSION: 1. Cervix is long and closed. 2. Small to moderate amount of free fluid in the cul-de-sac. 3. Simple RIGHT ovarian cyst measuring 1.3 x 1.9 x 1.4 cm. LEFT ovary not visualized today. 4. Diffuse echogenic heterogeneous thickening with increased vascularity essentially unchanged from previous. Imaging characteristics most compatible with retained products of conception in the setting of normal beta-hCG and considering clinical history. Notified Rodrigo Gomez DO at 10/13/2023 10:34 AM. Laboratory Results WBC 11.32 10^3/uL (3.29-11.43) 10/13/23 09:30 RBC 4.74 10^6/uL (3.85-5.65) 10/13/23 09:30 Hgb 13.80 g/dL (11.27-16.99) 10/13/23 09:30 Hct 42.4 % (36-47) 10/13/23 09:30 MCV 89.5 fl (85-98) 10/13/23 09:30 MCH 29.1 pg (27-33) 10/13/23 09:30 MCHC 32.5 g/dL (30-55) 10/13/23 09:30 RDW 13.0 % (12.1-15.1) 10/13/23 09:30 Plt Count 501 10^3/cmm (157-399) H 10/13/23 09:30 MPV 9.6 fL (7.4-10.4) 10/13/23 09:30 Neut % (Auto) 66.4 % 10/13/23 09:30 Lymph % (Auto) 26.2 % 10/13/23 09:30 Centre % (Auto) 4.9 % 10/13/23 09:30 Eos % (Auto) 1.1 % 10/13/23 09:30 Baso % (Auto) 1.0 % 10/13/23 09:30 Neut # (Auto) 7.53 10^3/uL (1.8-7.7) 10/13/23 09:30 Lymph # (Auto) 3.0 10^3/uL (0.8-4.8) 10/13/23 09:30 Centre # (Auto) 0.6 10^3/uL (0.2-0.9) 10/13/23 09:30 Eos # (Auto) 0.1 10^3/uL (0.0-0.8) 10/13/23 09:30 Baso # (Auto) 0.1 10^3/uL (0.0-0.1) 10/13/23 09:30 Nucleated RBC % (auto) 0 % 10/13/23 09:30 Nucleated RBCs # 0.0 /100WBC 10/13/23 09:30 Sodium 140 mmol/L (136-145) 10/13/23 09:30 Potassium 4.0 mmol/L (3.5-5.1) 10/13/23 09:30 Chloride 104 mmol/L (98-107) 10/13/23 09:30 Carbon Dioxide 18 mmol/L (22-29) L 10/13/23 09:30 Anion Gap 22.0 (5-19) H 10/13/23 09:30 BUN 7 mg/dL (6-20) 10/13/23 09:30 Creatinine 0.6 mg/dL (0.5-0.9) 10/13/23 09:30 GFR Calculation 126.2 mL/min (90-130) 10/13/23 09:30 Glucose 116 mg/dL (65-115) H 10/13/23 09:30 Calculated Osmolality 289 mOsm/kg (285-295) 10/13/23 09:30 Calcium 10.0 mg/dL (8.5-10.5) 10/13/23 09:30 Total Bilirubin 0.2 mg/dL (0.15-1.2) 10/13/23 09:30 AST 12 U/L (0-32) 10/13/23 09:30 ALT 11 U/L (0-33) 10/13/23 09:30 Alkaline Phosphatase 89 U/L (35-105) 10/13/23 09:30 Total Protein 8.3 g/dL (6.6-8.7) 10/13/23 09:30 Albumin 4.7 g/dL (3.5-5.2) 10/13/23 09:30 Globulin 3.6 g/dL (1.3-4.6) 10/13/23 09:30 Ser , Semi-Qnt 2.33 mIU/mL 10/13/23 09:30 All radiology interpretation(s) finalized by discharge Discharge Plan Discharge Patient Disposition: Placed in Observation Admit Provider: Moises Farley Clinical Impression: DUB (dysfunctional uterine bleeding), History of miscarriage Condition: Stable Coding Level of Care Code ED Kier Hand for Varghese Chamberlain
[2023-10-13 09:42] LABS: Basophils # 0.1 10^3/uL (0.0-0.1); Eosinophils # 0.1 10^3/uL (0.0-0.8); Eosinophils % 1.1 %; Hematocrit 42.4 % (36-47); Lymphocytes % 26.2 %; Mean Corpuscular HGB Conc 32.5 g/dL (30-55); Mean Corpuscular Hemoglobin 29.1 pg (27-33); Mean Corpuscular Volume 89.5 fl (85-98); Mean Platelet Volume 9.6 fL (7.4-10.4); Monocytes # 0.6 10^3/uL (0.2-0.9); Monocytes % 4.9 %; Neutrophils # 7.53 10^3/uL (1.8-7.7); Neutrophils % 66.4 %; Nucleated Red Blood Cells % 0 %; Platelet Count 501 10^3/cmm (157-399); Red Blood Count 4.74 10^6/uL (3.85-5.65); White Blood Count 11.32 10^3/uL (3.29-11.43)
--- NOTE | 2023-10-13 09:42 | US_ITS ---
WS: [id number] ULTRASOUND PELVIS TECHNIQUE: Transvaginal. CLINICAL INFORMATION: abnormal uterine bleeding LMP:? :? COMPARISON: 10/11/2023 and 09/13/2023 FINDINGS: Uterus Orientation: Anteverted. Size: 6.5 x 4.0 x 3.9 cm Masses: None. Cervix: Long and closed Endometrium: Diffuse echogenic thickening of the endometrium with hypervascularity similar to 10/11/19 24. This most likely represents retained products of conception. Adnexa: Simple RIGHT ovarian cyst measuring 1.4 x 1.9 x 1.3 cm Right ovary size: 3.0 x 1.9 x 3.3 cm. Left ovary size: Not visualized today Free fluid: Present Other findings: None. US/US transvaginal [id number] IMPRESSION: 1. Cervix is long and closed. 2. Small to moderate amount of free fluid in the cul-de-sac. 3. Simple RIGHT ovarian cyst measuring 1.3 x 1.9 x 1.4 cm. LEFT ovary not visu alized today. 4. Diffuse echogenic heterogeneous thickening with increased vascularity essen tially unchanged from previous. Imaging characteristics most compatible with re tained products of conception in the setting of normal beta-hCG and considering clinical history. Notified Rodrigo Gomez DO at 10/13/2023 10:34 AM.
[2023-10-13 10:06] VITALS: BP 157/88; PULSE 83; RESP 21; O2SAT 91
[2023-10-13 10:07] LABS: HCG Quantitative 2.33 mIU/mL
[2023-10-13 10:18] LABS: Alanine Aminotransferase 11 U/L (0-33); Albumin Level 4.7 g/dL (3.5-5.2); Alkaline Phosphatase 89 U/L (35-105); Aspartate Amino Transferase 12 U/L (0-32); Blood Urea Nitrogen 7 mg/dL (6-20); Carbon Dioxide 18 mmol/L (22-29); Chloride 104 mmol/L (98-107); Creatinine Clr Calc Pharmacy 137.5059; Globulin 3.6 g/dL (1.3-4.6); Glomerular Filtration Rate 126.2 mL/min (90-130); Glucose 116 mg/dL (65-115); Osmolality Calculated 289 mOsm/kg (285-295); Sodium 140 mmol/L (136-145); Total Bilirubin 0.2 mg/dL (0.15-1.2); Total Protein 8.3 g/dL (6.6-8.7)
[2023-10-13 10:39] VITALS: BP 157/88; PULSE 98; O2SAT 99
[2023-10-13 12:26] VITALS: BP 128/97; PULSE 87; O2SAT 100
[2023-10-13 12:27] VITALS: BMI 28.9
--- NOTE | 2023-10-13 12:44 | PM.OBGYCN ---
Providers/Reason for Consult Consulting Physican/Specialty*: Moises Farley MD, OB-Cracker Dough Mixer Reason for Consult*: bleeding, miscarriage Attending Physician: Moises Farley MD Primary Care Provider: Jimenez Escobedo MD [employer] Consult HPI History of Present Illness 23 y.o. G1 Has been followed by Dr. 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 today no fever, chills, pain, nausea, vomiting, dizziness Medications/Allergies Home Medications Medication Instructions Recorded Confirmed Last Taken Type ketorolac 10 mg tablet 10 mg PO TID PRN pain #10 tabs 09/13/23 10/13/23 Unknown Rx oxycodone-acetaminophen 7.5 mg-325 1 tab PO Q6H PRN pain #10 tabs 09/13/23 10/13/23 09/14/23 07:00 Rx mg tablet (Percocet) acetaminophen 500 mg tablet 1,000 mg PO Q6H PRN Pain 09/14/23 10/13/23 Unknown History ibuprofen 200 mg tablet 400 - 600 mg PO Q6H PRN Pain 09/14/23 10/13/23 Unknown History Allergies Allergy/AdvReac Type Severity Reaction Status Date / Time No Known Allergies Allergy Verified 10/11/23 21:25 PFSH J[employer]NEY[employer]UMBER PFSH: Medical History Irregular periods No pertinent past medical history neghx: htn,dm,thyroid,dvt/pe Iron deficiency anemia Constipation Adolescent depression Surgical History History of esophagogastroduodenoscopy (EGD) (~2019) Family History Mother Cervical cancer dx age 21 Pre-diabetes Grandmother Diabetes Maternal and Paternal Grandfather Heart disease Maternal Brother Hypertension Denies family history of Colon cancer Ovarian cancer Hypercholesteremia Breast cancer Bleeding disorder Uterine cancer Stroke Social History Smoking and tobacco/nicotine status: current every day tobacco/nicotine user e-cigarettes E-Cigarette Details: vaporizer device E-cig/vape details: 1 canister per every 3-4 days Alcohol intake: never Substance/Drug Use: current Other substance/drug use details: Stopped THC when she found out she was Do you think of yourself as: Straight/Heterosexual Vitals/I&O/Wt Last Vital Signs Temp 97.9 F 10/13/23 09:38 Pulse 87 10/13/23 12:26 Resp 21 H 10/13/23 10:06 BP 128/97 10/13/23 12:26 Pulse Ox 100 10/13/23 12:26 O2 Del Method Room Air 10/13/23 12:26 Weight last 48 hrs Weight 158 lb Physical Exam Narrative: Weight 155 lbs; 5?2? Comfortable Abd: soft, nontender Data 10/13/23 09:30 10/13/23 09:30 Other data: OB sono 09-13-23 irregularly-shaped GS No pole 10-11-23 uterus 6.7 x 3.6 x 3.9 cm Endometrium 1.8 cm Multiple vessels in endometrium 10-13-23 uterus 6.5 x 4 x 3.9 cm Endometrium diffuse thickening Blood type A + 09-13-23 Hgb 13.8 A&P Assessment and plan (1) Miscarriage: (2) DUB (dysfunctional uterine bleeding): Patient with negative serum bhcg Heavy uterine bleeding This most likely represents completed spontaneous and dysfunctional uterine bleeding I do not believe D&C is necessary at this time Would treat medically with methergine and OCs Methergine 0.2 mg po q 6 h Pirmella two tabs PO BID x one day, then two tabs PO daily x 3 days, then one tab daily Consult Attestations Medical Necessity Statement: patient with completed sab, with heavy uterine bleeding Coding Level of Care Code Acute Code for Chg Fwd Diagnoses Miscarriage O03.9 DUB (dysfunctional uterine bleeding) N93.8 Time Spent (min) 60
[2023-10-13] MEDS: oxyCODONE-APAP 5-325 mg Tablet PO (13:22)
[2023-10-13] MEDS: ondansetron 2 mg/ML SDV 2 mL 4 MG IVP (13:23)
[2023-10-13] MEDS: methylergonovine 0.2 mg/mL INJ 1 mL 0.200000000000000011 MG IM (13:23)
--- NOTE | 2023-10-13 14:32 | PC.NURSE ---
Pt suicidal in the last 3mo. Not currently suicidal. Notified Dr. Farley.
[2023-10-13 15:02] VITALS: BP 118/72; PULSE 85; RESP 20; TEMP 36.1; O2SAT 99
[2023-10-13 18:28] VITALS: BP 118/72; PULSE 85; RESP 20; TEMP 36.1; O2SAT 99
== END 2023-10-13 18:28 | disposition home or self-care (01) ==
LOC: ER 09:40 → MEDSURG 15:51
PROVIDERS: Physician Assistant; Admitting Provider Obstetrics & Gynecology; Emergency Provider Family Medicine; PCP Family Medicine; Visit Provider Obstetrics & Gynecology
DX: O03.4 Incomplete spontaneous abortion without complication (principal); F17.200 Nicotine dependence, unspecified, uncomplicated
CPT/HCPCS: 76830; 80053; 84702; 85025; 86850; 86900; 96372; 96374; 96375; 99285; G0378; J2210; J2405

== ENCOUNTER 2023-11-13 06:01 | Outpatient (CLI) | payer MEDICAID, SELFPAY ==
--- NOTE | 2023-11-13 06:00 | US_ITS ---
WS: [id number] US transvaginal [id number] HISTORY: N93.9 - Abnormal uterine and vaginal bleeding, unspecified COMPARISON: 10/13/2023, 10/11/2023 Uterus: 6.5 cm x 4.2 cm x 3.7 cm. Retroverted uterus. Slightly bulky uterus. No fibroid. There is a large vessel coursing within the po sterior myometrium extending posterior and to the LEFT. Vessel extends centrally from the junctional zone to the LEFT. Unfortunately no waveform was obtained but this is highly suspicious for AV fistula /malformation. AV malformation was also noted on the prior exam from 10/11/2023 and appears slightly l ess serpiginous but there is still significant flow. Endometrium: 1.0 cm. Heterogeneous endometrium. More bulbous heterogeneous portion of the endometrium distally. There are a few small cystic areas along the posterior junctional zone which demonstrate i ncreased vascularity from the aVF with color Doppler. Right ovary: 2.7 cm x 2.1 cm x 1.5 cm. Normal size and vascularity, no cystic or solid masses. Left ovary: 2.4 cm x 1.0 cm x 2.1 cm. Normal size and vascularity, no cystic or solid masses. Moderate to large amount of free fluid in the pelvis with increased internal echoes. US/US transvaginal [id number] IMPRESSION: 1. Increasing amount of complex free fluid in the pelvis is highly suspicious for hemoperitoneum. This is more than physiologic amount. This may be due to a ruptured ovarian cyst or complications from the aVF. 2. Large vessel extending from the posterior mid endometrium through the myome trium is highly suspicious for an AV malformation. Also noted on a prior exam. 3. Heterogeneous endometrium. Notified Moises Farley MD at 11/13/2023 8:16 AM.
[2023-11-13 07:27] LABS: Basophils # 0.1 10^3/uL (0.0-0.1); Basophils % 0.8 %; Eosinophils # 0.2 10^3/uL (0.0-0.8); Eosinophils % 1.7 %; Hematocrit 37.4 % (36-47); Lymphocytes # 2.7 10^3/uL (0.8-4.8); Mean Corpuscular HGB Conc 31.3 g/dL (30-55); Mean Corpuscular Volume 89.5 fl (85-98); Mean Platelet Volume 10.3 fL (7.4-10.4); Monocytes # 0.7 10^3/uL (0.2-0.9); Monocytes % 7.7 %; Neutrophils # 5.89 10^3/uL (1.8-7.7); Neutrophils % 61.5 %; Nucleated Red Blood Cells % 0 %; Platelet Count 458 10^3/cmm (157-399); Red Blood Count 4.18 10^6/uL (3.85-5.65); Red Cell Distribution Width 12.7 % (12.1-15.1); White Blood Count 9.58 10^3/uL (3.29-11.43)
[2023-11-13 07:30] LABS: HCG Qualitative Urine. Negative (Negative)
[2023-11-13 07:39] LABS: Partial Thromboplastin Time 28.4 SECONDS (23.9-36.7)
== END 2023-11-13 06:02 | disposition home or self-care (01) ==
PROVIDERS: PCP Family Medicine; Visit Provider Obstetrics & Gynecology
DX: N93.9 Abnormal uterine and vaginal bleeding, unspecified (principal); N93.8 Other specified abnormal uterine and vaginal bleeding; O03.9 Complete or unspecified spontaneous abortion without complication; R19.00 Intra-abdominal and pelvic swelling, mass and lump, unspecified site; N85.8 Other specified noninflammatory disorders of uterus
CPT/HCPCS: 36415; 76830; 81025; 85025; 85610; 85730

== ENCOUNTER 2024-01-22 10:28 | Outpatient (CLI) | payer MEDICAID, SELFPAY ==
[2024-01-22 11:17] LABS: Progesterone 13.04 ng/mL
== END 2024-01-22 10:29 | disposition home or self-care (01) ==
LOC: LAB 10:29
PROVIDERS: PCP Family Medicine; Visit Provider Family Medicine
DX: Z32.01 Encounter for pregnancy test, result positive (principal)
CPT/HCPCS: 36415; 84144; 84702

== ENCOUNTER → 2024-01-25 11:23 | Outpatient (BNVA) | payer MEDICAID, SELFPAY | PROVIDERS: PCP Family Medicine; Visit Provider Family Medicine | DX: Z34.90 Encounter for supervision of normal pregnancy, unspecified, unspecified trimester (principal); R30.0 Dysuria | CPT/HCPCS: 80307; 81000; 84144; 84443; 84702; 85025; 86592; 86762; 86803; 86850; 86900; 87086; 87340; 87491; 87591; 87624; 87806 ==

== ENCOUNTER 2024-02-05 14:29 | Outpatient (CLI) | payer MEDICAID, SELFPAY ==
--- NOTE | 2024-02-05 14:45 | US_ITS ---
WS: [id number] EARLY OBSTETRICAL ULTRASOUND (<14 WEEKS). HISTORY: Dating US - About 1-2 weeks from now COMPARISON: None available. Only transabdominal imaging submitted. Single intrauterine gestational sac is identified. Cardiac activity at 171 BPM. [place]-rump length alex sures 2.1 cm which corresponds to a gestation of 8w5d. Normal-appearing yolk sac and amnion demonstra gladis. No subchorionic hemorrhage. No free fluid. Normal LEFT ovary measures 3.1 x 2.3 x 1.4 cm. RIGHT ovary is not identified. US/US OB <= 14 weeks fetus [id number] IMPRESSION: 1. Single intrauterine gestation of 8w5d with an EDC of 09/11/2024. 2. Normal cardiac activity.
== END 2024-02-05 14:30 | disposition home or self-care (01) ==
LOC: RAD 14:29
PROVIDERS: PCP Family Medicine; Visit Provider Family Medicine
DX: Z34.01 Encounter for supervision of normal first pregnancy, first trimester (principal)
CPT/HCPCS: 76801

== ENCOUNTER → 2024-03-21 09:51 | Outpatient (BNVA) | payer MEDICAID, SELFPAY | PROVIDERS: PCP Family Medicine; Visit Provider Family Medicine | DX: Z34.00 Encounter for supervision of normal first pregnancy, unspecified trimester (principal) | CPT/HCPCS: 81511 ==

== ENCOUNTER 2024-04-25 12:37 | Outpatient (CLI) | payer MEDICAID, SELFPAY ==
--- NOTE | 2024-04-25 12:45 | USR_ITS ---
PROCEDURE INFORMATION: Exam: US After First Trimester, Transabdominal Exam date and time: 04/25/2024 1:06 PM Age: 24 years old Clinical indication: Screening exam; Routine US, uterus; Additional info: Anatomy US - about 5 weeks from now LABS AND CLINICAL REPORTS: Gestational age (Established): 20 w 0 d Estimated due date (Established): 09/12/2024 TECHNIQUE: Imaging protocol: Real-time transabdominal obstetrical ultrasound of the maternal pelvis and a second or third trimester with image documentation. COMPARISON: US OB <= 14 weeks fetus [id number] 02/05/2024 3:00 PM FINDINGS: Gestation: Single live intrauterine gestation. heart rate: 159 bpm presentation and position: Breech Placenta: Unremarkable. No subchorionic bleed. Placenta is posterior Amniotic fluid (Qualitative): Amniotic fluid is normal for gestational age. ANATOMY: midline falx: Normal cerebellum: Normal lateral ventricles: Normal cisterna magna: Normal choroid plexus: Normal face: Upper lip is normal heart four-chamber view, heart size and position: Normal heart right ventricular outflow tract: Normal heart left ventricular outflow tract: Normal kidneys: Normal stomach: Normal urinary bladder: Normal spine: Normal Umbilical cord and insertion: Possible small cystic lesion at the insertion, otherwise unremarkable. upper limbs: Normal lower limbs: Normal external genitalia: Boy, normal BIOMETRY: Gestational age (AUA): 20 weeks and 2 days Estimated due date (AUA): 09/10/2024 Estimated weight: 342.87 g. EFW by AC, BPD, FL, HC, Hadlock 1985 61.2 percentile Biparietal diameter (BPD): 4.79 cm. EGA (BPD) is 20 w 3 d. 70.1 % percentile Head circumference (HC): 17.91 cm. EGA (HC) is 20 w 2 d. 59 % percentile Abdominal circumference (AC): 15.22 cm. EGA (AC) is 20 w 3 d. 59.2 % percentile Femur length (FL): 3.22 cm. EGA (FL) is 20 w 0 d. 43.4 % percentile HC/AC: 1.18. (Normal range: 1.07 - 1.25) FL/HC: 17.98. (Normal range: 16.54 - 19.94) FL/BPD: 67.22 FL/AC: 21.16 MATERNAL: Uterus: Unremarkable. Cervix: Cervical length measures 5.2 cm. Right ovary/adnexa: Obscured by lack of adequate acoustic window. Left ovary/adnexa: Obscured by lack of adequate acoustic window. Intraperitoneal space: No intraperitoneal free fluid. US/US OB >= 14 weeks fetus [id number] IMPRESSION: 1. Live intrauterine dating 20 weeks and 2 days with the estimated due date of 09/10/2024. 2. Above biometry is internally congruent. 3. Possible cyst at the umbilical cord insertion. Patient should return in 7-10 days for reassessment of the insertion site, otherwise viewed anatomy above is normal.
== END 2024-04-25 12:38 | disposition home or self-care (01) ==
LOC: RAD 12:38
PROVIDERS: PCP Family Medicine; Visit Provider Family Medicine
DX: Z34.02 Encounter for supervision of normal first pregnancy, second trimester (principal); R93.89 Abnormal findings on diagnostic imaging of other specified body structures
CPT/HCPCS: 76805

== ENCOUNTER 2024-05-12 06:42 | Outpatient (CLI) | payer MEDICAID, SELFPAY ==
[2024-05-12 06:44] VITALS: BMI 30.9
[2024-05-12 06:48] VITALS: BP 121/59; PULSE 82
[2024-05-12 06:51] VITALS: RESP 18
[2024-05-12 07:23] VITALS: RESP 18
[2024-05-12] MEDS: ondansetron 4 MG Tablet PO (07:48)
[2024-05-12] MEDS: acetaminophen 500 mg Tablet PO (08:15)
[2024-05-12 08:36] VITALS: BP 106/60; PULSE 82
== END 2024-05-12 08:52 | disposition home or self-care (01) ==
LOC: OPOB 06:42 → OBGYN 06:43
PROVIDERS: PCP Family Medicine; Visit Provider Family Medicine
DX: O21.9 Vomiting of pregnancy, unspecified (principal); Z3A.00 Weeks of gestation of pregnancy not specified; R10.9 Unspecified abdominal pain
CPT/HCPCS: 99211; Q0162

== ENCOUNTER 2024-05-16 08:07 | Outpatient (CLI) | payer MEDICAID, SELFPAY ==
--- NOTE | 2024-05-16 08:15 | US_ITS ---
WS: [id number] ULTRASOUND OB FOCUSED HISTORY: Re-evaluate cystic lesion at umbilicus - In next 7 days COMPARISON: 04/25/2024 Single intrauterine gestation in breech position. Cervix is closed. Normal amount of amniotic fluid. Posterior placenta. heart rate at 147 BPM. Reevaluation of the umbilical cord insertion site is performed. No cyst is identified on today's exam ination. There is a normal insertion site of the cord. Three-vessel cord is noted. US/US OB limited [id number] IMPRESSION: No cyst identified at the umbilical cord insertion site The abdominal wall is intact.
== END 2024-05-16 08:08 | disposition home or self-care (01) ==
LOC: RAD 08:08
PROVIDERS: PCP Family Medicine; Visit Provider Family Medicine
DX: O36.8920 Maternal care for other specified fetal problems, second trimester, not applicable or unspecified (principal)
CPT/HCPCS: 76815

== ENCOUNTER → 2024-06-17 09:45 | Outpatient (BNVA) | payer MEDICAID, SELFPAY | PROVIDERS: PCP Family Medicine; Visit Provider Family Medicine | DX: Z34.00 Encounter for supervision of normal first pregnancy, unspecified trimester (principal) | CPT/HCPCS: 82950 ==

== ENCOUNTER → 2024-07-05 07:59 | Outpatient (BNVA) | payer MEDICAID, SELFPAY | PROVIDERS: PCP Family Medicine; Visit Provider Family Medicine | DX: Z34.00 Encounter for supervision of normal first pregnancy, unspecified trimester (principal); J10.1 Influenza due to other identified influenza virus with other respiratory manifestations | CPT/HCPCS: 82951; 82952; 87400 ==

== ENCOUNTER 2024-07-29 14:31 | Outpatient (CLI) | payer MEDICAID, SELFPAY ==
--- NOTE | 2024-07-29 14:45 | USR_ITS ---
PROCEDURE INFORMATION: Exam: US , Limited Exam date and time: 07/29/2024 2:50 PM Age: 24 years old Clinical indication: Screening exam; Routine US, uterus; Additional info: Gestational dm, weekly nora/bpp/resistive index x 7 LABS AND CLINICAL REPORTS: Gestational age (Established): 33 w 6 d Estimated due date (Established): 09/10/2024 TECHNIQUE: Imaging protocol: Real-time ultrasound of the maternal uterus with image documentation. Exam focused on the clinical indication. COMPARISON: US OB limited [id number] 05/16/2024 8:26 AM FINDINGS: Gestation: Intrauterine gestation heart rate: 150 bpm. heart rate of 150 bpm. Placenta: Placenta appears fundal in positioning and normal by ultrasound standards. Amniotic fluid index: NORA is 14.51 cm, normal. Umbilical cord and insertion: Spectral analysis of the umbilical cord appears within normal limits. No elevated resistive indices. BIOMETRY: Estimated weight: 2215.43 g, 33 percentile. EFW by AC, BPD, FL, HC, Hadlock 1985 Biparietal diameter (BPD): 8.51 cm. EGA (BPD) is 34 w 2 d. 60 % percentile Head circumference (HC): 30.84 cm. EGA (HC) is 34 w 3 d. 27.1 % percentile Abdominal circumference (AC): 29.22 cm. EGA (AC) is 33 w 2 d. 34.1 % percentile Femur length (FL): 6.5 cm. EGA (FL) is 33 w 4 d. 30.9 % percentile HC/AC: 1.06. (Normal range: 0.95 - 1.11) FL/HC: 21.08. (Normal range: 19.47 - 21.76) FL/BPD: 76.38. (Normal range: 71 - 87) FL/AC: 22.25. (Normal range: 20 - 24) BIOPHYSICAL PROFILE: breathing (BPP): breathing is observed. gross body movement (BPP): movement is observed. tone (BPP): tone appears normal. MATERNAL: Cervix: Cervical length measures 3.8 cm. US/ OB limited [id number] IMPRESSION: 1. Live intrauterine gestation with the above biometry. 2. Normal biophysical profile.
== END 2024-07-29 14:32 | disposition home or self-care (01) ==
PROVIDERS: PCP Family Medicine; Visit Provider Family Medicine
DX: O24.419 Gestational diabetes mellitus in pregnancy, unspecified control (principal); O09.93 Supervision of high risk pregnancy, unspecified, third trimester; Z3A.33 33 weeks gestation of pregnancy
CPT/HCPCS: 76815

== ENCOUNTER 2024-07-29 15:24 | Outpatient (CLI) | payer MEDICAID, SELFPAY ==
[2024-07-29 15:32] VITALS: BP 118/70; PULSE 95; BMI 33.3
[2024-07-29 15:47] VITALS: BP 128/76; PULSE 100
[2024-07-29 16:02] VITALS: BP 129/74; PULSE 90
[2024-07-29 16:09] VITALS: BP 129/74; PULSE 90; RESP 16
== END 2024-07-29 16:10 | disposition home or self-care (01) ==
LOC: OPOB 15:25 → OBGYN 15:27
PROVIDERS: PCP Family Medicine; Visit Provider Family Medicine
DX: O24.419 Gestational diabetes mellitus in pregnancy, unspecified control (principal); Z3A.00 Weeks of gestation of pregnancy not specified
CPT/HCPCS: 59025

== ENCOUNTER 2024-08-05 11:29 | Outpatient (CLI) | payer MEDICAID, SELFPAY ==
[2024-08-05 11:30] VITALS: BMI 33.8
[2024-08-05 11:44] VITALS: BP 114/66; PULSE 89
[2024-08-05 12:05] VITALS: BP 119/69; PULSE 106
--- NOTE | 2024-08-05 12:13 | USR_ITS ---
PROCEDURE INFORMATION: Exam: US Biophysical Profile Without Non-Stress Test Exam date and time: 08/05/2024 1:04 PM Age: 24 years old Clinical indication: Condition or disease; Other: Gestional diabetic, ; Additional info: Gestional diabetic, bbp and nora TECHNIQUE: Imaging protocol: US biophysical profile without non-stress testing. COMPARISON: US OB limited [id number] 07/29/2024 2:50 PM FINDINGS: heart rate: 124 bpm Placenta: The placenta is posterior/fundal. Amniotic fluid (Qualitative): 2 Amniotic fluid index: NORA is 12.03 cm. The amniotic fluid index is 12.03 cm. Presentation is cephalic. BIOPHYSICAL PROFILE: breathing (BPP): 2 out of 2. gross body movement (BPP): 2 out of 2. tone (BPP): 2 out of 2. Amniotic fluid (BPP): 2 out of 2. MATERNAL ANATOMY: Cervix: Cervical length measures 4 cm. US/US OB BPP wo NST [id number] IMPRESSION: Biophysical profile score of 8.
[2024-08-05 12:25] VITALS: BP 112/64; PULSE 88
[2024-08-05 12:44] VITALS: BP 114/75; PULSE 91
== END 2024-08-05 13:25 | disposition home or self-care (01) ==
LOC: OPOB 11:29 → OBGYN 11:33
PROVIDERS: PCP Family Medicine; Visit Provider Family Medicine
DX: O24.919 Unspecified diabetes mellitus in pregnancy, unspecified trimester (principal); Z3A.00 Weeks of gestation of pregnancy not specified
CPT/HCPCS: 36415; 59025; 76819; 85025; 99211

== ENCOUNTER 2024-08-09 14:22 | Outpatient (CLI) | payer MEDICAID, SELFPAY ==
[2024-08-09 14:23] VITALS: BMI 41.1
[2024-08-09 14:29] VITALS: BP 132/65; PULSE 106
[2024-08-09 14:44] VITALS: BP 120/60; PULSE 99
[2024-08-09 15:00] VITALS: BP 120/60; PULSE 99; RESP 16; TEMP 36.2; O2SAT 99
== END 2024-08-09 15:00 | disposition home or self-care (01) ==
LOC: OPOB 14:23 → OBGYN 14:26
PROVIDERS: PCP Family Medicine; Visit Provider Family Medicine
DX: O24.419 Gestational diabetes mellitus in pregnancy, unspecified control (principal); Z3A.00 Weeks of gestation of pregnancy not specified
CPT/HCPCS: 59025; 99211

== ENCOUNTER 2024-08-12 08:37 | Outpatient (CLI) | payer MEDICAID, SELFPAY ==
[2024-08-12 08:51] VITALS: BMI 34.5
[2024-08-12 08:53] VITALS: BP 118/66; PULSE 93
--- NOTE | 2024-08-12 09:03 | USR_ITS ---
PROCEDURE INFORMATION: Exam: US Biophysical Profile Without Non-Stress Test Exam date and time: 08/12/2024 10:29 AM Age: 24 years old Clinical indication: Condition or disease; Other: Gestional diabetic; ; Additional info: Biophysical profile and nora for gestional diabetic TECHNIQUE: Imaging protocol: US biophysical profile without non-stress testing. COMPARISON: US OB BPP wo NST [id number] 08/05/2024 1:04 PM FINDINGS: heart rate: 144 bpm. presentation and position: Cephalic/vertex presentation. Placenta: Posterior fundal placenta, unremarkable. Amniotic fluid index: NORA is 14.3 cm. Largest pocket measures 4.7 cm. BIOPHYSICAL PROFILE: breathing (BPP): 2 out of 2. gross body movement (BPP): 2 out of 2. tone (BPP): 2 out of 2. Amniotic fluid (BPP): 2 out of 2. BIOMETRY: Gestational age (AUA): Reported gestational age 35 weeks 6 days. MATERNAL ANATOMY: Cervix: Cervical length measures 5.2 cm and appears closed. US/US OB BPP wo NST [id number] IMPRESSION: Biophysical profile score 8/8.
[2024-08-12 09:13] VITALS: BP 117/68; PULSE 90
[2024-08-12 09:34] VITALS: BP 124/72; PULSE 85
== END 2024-08-12 10:42 | disposition home or self-care (01) ==
LOC: OPOB 08:37 → OBGYN 08:38
PROVIDERS: PCP Family Medicine; Visit Provider Family Medicine
DX: O24.419 Gestational diabetes mellitus in pregnancy, unspecified control (principal); Z3A.00 Weeks of gestation of pregnancy not specified
CPT/HCPCS: 59025; 76819; 87081; 99211

== ENCOUNTER 2024-08-16 14:38 | Outpatient (CLI) | payer MEDICAID, SELFPAY ==
[2024-08-16 14:49] VITALS: BP 115/60; PULSE 103
[2024-08-16 15:01] VITALS: BP 114/60; PULSE 98
[2024-08-16 15:16] VITALS: BP 114/58; PULSE 97
[2024-08-16 15:31] VITALS: BP 110/59; PULSE 100
== END 2024-08-16 15:40 | disposition home or self-care (01) ==
LOC: OPOB 14:41 → OBGYN 14:41
PROVIDERS: PCP Family Medicine; Visit Provider Family Medicine
DX: O24.419 Gestational diabetes mellitus in pregnancy, unspecified control (principal); Z3A.00 Weeks of gestation of pregnancy not specified
CPT/HCPCS: 59025

== ENCOUNTER 2024-08-19 11:20 | Outpatient (CLI) | payer MEDICAID, SELFPAY ==
[2024-08-19 11:20] VITALS: RESP 17; BMI 34.6
[2024-08-19 11:28] VITALS: BP 131/72; PULSE 100
--- NOTE | 2024-08-19 11:30 | US_ITS ---
WS: [id number] BIOPHYSICAL PROFILE AMNIOTIC FLUID HISTORY: BPP NORA for GDM COMPARISON: 08/12/2024 position: Vertex. Cardiac activity: 136 bpm. Cervix: closed. Placenta: Posterior, no previa or abruption. Placenta grade: 2 Parameters are as follows: Breathin Movement: 2 Tone: 2 Fluid volume: 2 Amniotic Fluid Index: 13.6 cm. US/US OB BPP wo NST [id number] IMPRESSION: 1. Biophysical profile score: 8/8. 2. Normal amniotic fluid. 3. Grade 2 placenta.
[2024-08-19 11:55] VITALS: BP 119/70; PULSE 78
== END 2024-08-19 12:48 | disposition home or self-care (01) ==
LOC: OPOB 11:24 → OBGYN 11:24
PROVIDERS: PCP Family Medicine; Visit Provider Family Medicine
DX: O24.419 Gestational diabetes mellitus in pregnancy, unspecified control (principal); Z3A.00 Weeks of gestation of pregnancy not specified
CPT/HCPCS: 59025; 76819

== ENCOUNTER 2024-08-23 13:30 | Outpatient (CLI) | payer MEDICAID, SELFPAY ==
[2024-08-23 13:37] VITALS: BP 133/63; PULSE 106
[2024-08-23 13:47] VITALS: BMI 34.7
[2024-08-23 13:50] VITALS: RESP 16
[2024-08-23 13:52] VITALS: BP 131/62; PULSE 99
[2024-08-23 14:06] VITALS: BP 131/62; PULSE 99; RESP 16
== END 2024-08-23 14:06 | disposition home or self-care (01) ==
LOC: OPOB 13:33 → OBGYN 13:34
PROVIDERS: PCP Family Medicine; Visit Provider Family Medicine
DX: O24.419 Gestational diabetes mellitus in pregnancy, unspecified control (principal); Z3A.00 Weeks of gestation of pregnancy not specified
CPT/HCPCS: 59025

== ENCOUNTER 2024-08-26 11:41 | Outpatient (CLI) | payer MEDICAID, SELFPAY ==
[2024-08-26 11:52] VITALS: BP 125/72; PULSE 103
== END 2024-08-26 12:18 | disposition home or self-care (01) ==
LOC: OPOB 11:42 → OBGYN 11:43
PROVIDERS: PCP Family Medicine; Visit Provider Family Medicine
DX: O24.419 Gestational diabetes mellitus in pregnancy, unspecified control (principal); Z3A.00 Weeks of gestation of pregnancy not specified
CPT/HCPCS: 59025

== ENCOUNTER 2024-08-26 12:29 | Outpatient (CLI) | payer MEDICAID, SELFPAY ==
--- NOTE | 2024-08-24 09:32 | P.ANESASSM_ITS ---
Pre-Anesthetic Assessment Height/Weight: Height 5 ft 2 in Preop Diagnosis: IUP Was Beta Nelia taken within 24 hours: N/A Was Clonidine taken within 24 hours: N/A Social No alcohol and No tobacco Exam alert, oriented x 3, clear to auscultation bilaterally and regular rate & rhythm Airway Submandibular: within normal limits Cervical ROM: within normal limits Mallampati: Class II Dentition: full Anesthetic Plan ASA status: 2 Anesthesia: Regional (specify below) Other: No prior issues with anesthesia in the past G1, P0 here for epidural consult Gestational diabetes noted. On insulin Denies any pulmonary issues Will obtain labs prior to epidural placement Discussed epidural risks and patient would like to proceed with this when she is deemed in active labor Medications/Allergies Home Medications ?Medication ?Instructions ?Recorded ?Confirmed ?Last Taken ?Type vitamin-ferrous fumarate 1 tab PO DAILY #90 t abs 12/23/23 08/19/24 08/18/24 07:00 Rx 28 mg iron-folic acid 800 mcg tablet ( Vitamins with Minerals) doxylamine succinate 25 mg tablet See Rx Instructions .Route 01/25/24 08/19/24 Unknown Rx .COMPLEX PRN allergy symptoms #30 tabs pyridoxine (vitamin B6) 100 mg 100 mg PO BID PRN Nause a #60 tabs 01/25/24 08/19/24 Unknown Rx tablet blood sugar diagnostic (OneTouch #100 ea 07/15/2407/17 Unknown Rx Ultra Test strips) lancets 33 gauge (OneTouch Delica #100 ea 07/15/24 Unknown Rx Plus Lancet) pen needle, diabetic 31 gauge x #100 ea 07/22/2408/12 Unknown Rx 5/16 (TechLITE Pen Needle) blood-glucose meter (OneTouch #1 ea 08/12/24 Unknown Rx Ultra2 Meter) triamcinolone acetonide 0.1 % 1 applic topical DAILY # 30 grams 08/12/24 08/19/24 Unknown Rx topical cream insulin glargine 100 unit/mL (3 15 unit SUBCUT BID 09/0908/19/24 08/19/24 07:00 History mL) subcutaneous pen (Lantus Solostar U-100 Insulin) Allergies Allergy/AdvReac Type Severity Reaction Status Date / Time No Known Allergies Allergy Verified 05/12/24 06:53 [facility] Anesthesia Medical History History of miscarriage Miscarriage Irregular periods No pertinent past medical history neghx: htn,dm,thyroid,dvt/pe Iron deficiency anemia Constipation Adolescent depression Surgical History History of esophagogastroduodenoscopy (EGD) (~2019) Family History Mother Cervical cancer dx age 21 Pre-diabetes Grandmother Diabetes Maternal and Paternal Grandfather Heart disease Maternal Brother Hypertension Denies family history of Colon cancer Ovarian cancer Hypercholesteremia Breast cancer Bleeding disorder Uterine cancer Stroke Social History Smoking and tobacco/nicotine status: never used tobacco/nicotine Alcohol intake: never Substance/Drug Use: former Former substance use details: Quit marijuana since finding out she was Female Reproductive History Para: 0 Spontaneous abortions: No Data Anesthesia Cardiac Studies: No Data to Display
--- NOTE | 2024-08-26 12:45 | USR_ITS ---
PROCEDURE INFORMATION: Exam: US , Limited Exam date and time: 08/26/2024 12:46 PM Age: 24 years old Clinical indication: Screening exam; Routine US, uterus; Additional info: Gestational dm, nora/bpp/resistive index/efw LABS AND CLINICAL REPORTS: Gestational age (Established): 37 w 6 d Estimated due date (Established): 09/10/2024 TECHNIQUE: Imaging protocol: Real-time ultrasound of the maternal uterus with image documentation. Exam focused on the clinical indication. COMPARISON: US OB BPP wo NST [id number] 08/19/2024 12:24 PM FINDINGS: Gestation: Single live intrauterine gestation. Established gestational age of 37 weeks and 6 days. heart rate: 144 bpm Amniotic fluid index: NORA is 13.86 cm. BIOMETRY: Estimated weight: 3093.4 g. EFW by AC, BPD, FL, HC, Hadlock 1985 79.7 % percentile Biparietal diameter (BPD): 9.51 cm. EGA (BPD) is 38 w 6 d. 89.6 % percentile Head circumference (HC): 34.09 cm. EGA (HC) is 39 w 2 d. 63.2 % percentile Abdominal circumference (AC): 32.21 cm. EGA (AC) is 36 w 1 d. 19.8 % percentile Femur length (FL): 7.25 cm. EGA (FL) is 37 w 1 d. 32.9 % percentile HC/AC: 1.06. (Normal range: 0.9 - 1.05) FL/HC: 21.27. (Normal range: 20.89 - 22.69) FL/BPD: 76.24. (Normal range: 71 - 87) FL/AC: 22.51. (Normal range: 20 - 24) US/US OB limited [id number] IMPRESSION: Single live intrauterine gestation as above.
== END 2024-08-26 12:30 | disposition home or self-care (01) ==
PROVIDERS: PCP Family Medicine; Visit Provider Family Medicine
DX: O09.93 Supervision of high risk pregnancy, unspecified, third trimester (principal); O24.419 Gestational diabetes mellitus in pregnancy, unspecified control; Z3A.37 37 weeks gestation of pregnancy
CPT/HCPCS: 76815

== ENCOUNTER 2024-08-30 14:48 | Outpatient (CLI) | payer MEDICAID, SELFPAY ==
[2024-08-30 14:45] VITALS: BMI 34.9
[2024-08-30 14:58] VITALS: BP 119/74; PULSE 91
[2024-08-30 15:13] VITALS: BP 115/72; PULSE 93
[2024-08-30 15:28] VITALS: BP 104/57; PULSE 90
[2024-08-30 15:39] VITALS: BP 104/57; PULSE 90; RESP 16
== END 2024-08-30 15:39 | disposition home or self-care (01) ==
LOC: OPOB 14:48 → OBGYN 14:49
PROVIDERS: PCP Family Medicine; Visit Provider Family Medicine
DX: O24.419 Gestational diabetes mellitus in pregnancy, unspecified control (principal); Z3A.00 Weeks of gestation of pregnancy not specified
CPT/HCPCS: 59025; 99211

== ENCOUNTER 2024-09-02 12:27 | Outpatient (CLI) | payer MEDICAID, SELFPAY ==
--- NOTE | 2024-09-02 12:45 | USR_ITS ---
PROCEDURE INFORMATION: Exam: US Biophysical Profile Without Non-Stress Test Exam date and time: 09/02/2024 12:52 PM Age: 24 years old Clinical indication: Other: Gestational dm; ; Additional info: Gestational dm, nora/bpp/resistive index TECHNIQUE: Imaging protocol: US biophysical profile without non-stress testing. COMPARISON: US OB limited [id number] 08/26/2024 12:46 PM FINDINGS: heart rate: 132 bpm presentation and position: The fetus is in cephalic presentation. Placenta: The placenta is posterior and fundal in location. Amniotic fluid index: NORA is 10.16 cm. BIOPHYSICAL PROFILE: breathing (BPP): 2 /2 gross body movement (BPP): 2 /2 tone (BPP): 2 /2 Amniotic fluid (BPP): 2 /2 Biophysical profile score (BPP): 8 /8 MATERNAL ANATOMY: Cervix: Cervical length measures 4.6 cm. Vasculature: Resistive indices of the umbilical artery range from 0.39 to 0.48. US/US OB BPP wo NST w umb IMPRESSION: Biophysical profile score is 8 out of 8.
== END 2024-09-02 12:28 | disposition home or self-care (01) ==
PROVIDERS: PCP Family Medicine; Visit Provider Family Medicine
DX: I10 Essential (primary) hypertension (principal)
CPT/HCPCS: 76819; 76820

== ENCOUNTER 2024-09-02 13:32 | Outpatient (CLI) | payer MEDICAID, SELFPAY ==
[2024-09-02 13:37] VITALS: BP 124/74; PULSE 105
[2024-09-02 13:47] VITALS: BMI 35.4
== END 2024-09-02 14:20 | disposition home or self-care (01) ==
LOC: OPOB 13:33 → OBGYN 13:34
PROVIDERS: PCP Family Medicine; Visit Provider Family Medicine
DX: O24.419 Gestational diabetes mellitus in pregnancy, unspecified control (principal); Z3A.00 Weeks of gestation of pregnancy not specified
CPT/HCPCS: 59025

== ENCOUNTER 2024-09-04 18:00 | Inpatient (IN) | payer MEDICAID, SELFPAY ==
--- OUTSIDE RECORDS SUMMARY | 2024-09-04 18:04 | XMS_ITS | Clinical Summary ---
Author Organization [facility] Address [address] [place]: Epic Prelude ADT [place] [address] Care Team Providers Care Pockets And Pieces Necktie Operator Name Role Phone Unavailable Primary Care Provider Unavailabl e Allergies No known active allergies Medications famotidine (PEPCID) 20 mg tabletIndication s:Gastritis, presence of bleeding unspecified, unspecified chronicity, unspecified gastritis type,Duodenitis Take 1 Tablet (20 mg) by mouth 2 times daily. 60 Tablet 0 0 Active OTHER Fiber gummy daily 0 Active multivitamin (DAILY-JOSE) tablet Take 1 Tablet by mouth daily. Flinstone vitamin 0 Active sertraline (ZOLOFT) 25 mg tablet Take 25 mg by mouth daily. 0 Active Family History Medical History Relation Name Comments Other Brother Other Mother Relation Name Status Comments Brother Alive Mother Alive Social History Tobacco Use Types Packs/Day Years Used Date Smoking Tobacco: Passive Smo ke Exposure - Never Smoker Smokeless Tobacco: Never Comments Unknown Sex and Gender Information Value Date Recorded Sex Assigned at Not on file Legal Sex Female 9:34 PM LEGAL SUPPORT ASSISTANT Gender Identity Not on file Sexual Orientation Not on file Last Filed Vital Signs Vital Sign Reading Time Taken Comments Blood Pressure 108/62 01/19/2020 3:40 PM CDT Pulse 68 01/19/2020 3:40 PM CDT Temperature 36.7 ??C (98 ??F) 01/19/2020 3:40 PM CDT Respiratory Rate 20 01/19/2020 3:40 PM CDT Oxygen Saturation - - Inhaled Oxygen Concentration - - Weight 61.8 kg (136 lb 3.2 oz) 01/19/2020 1:58 P M CDT Height 157.7 cm (5' 2.1 ) 12/20/2019 9:23 AM CDT Body Mass Index - - Plan of Treatment Health Maintenance Due Date Last Done Comments CHLAMYDIA SCREENING (ANNUAL) 11-24 YEARS 2013 HPV VACCINES (1 - 3-dose series) 2017 DTAP/TDAP/TD VACCINES (1 - Tdap) 2021 HEPATITIS B VACCINES (1 of 3 - 19+ 3-dose series) 2021 CERVICAL CANCER SCREENING 2023 HPV/Cotest (21-29) 2023 PAP SMEAR 2023 PAP SMEAR 2023 INFLUENZA VACCINE (#1) 2023 PNEUMOCOCCAL VACCINE 0-49 YEARS Aged Out No longer eligible based on patient's age to complete this topic Medical Devices Implanted Type Area Chemicals Distiller Device Identifier Shelf Expiration Date Model / Serial / Lot Capsule Clifton Ph Test [id number]-[id number] - [id number] Implanted:Qty : 1 on 01/19/2020 by Mick Lovell MD Other N/A: 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 GIVEN [id number] / / Description:implanted at 35c m
--- OUTSIDE RECORDS SUMMARY | 2024-09-04 18:04 | XMS_ITS | Clinical Summary ---
Author Organization [facility] Address [address] [place] [address] Care Team Providers Care Staff Genetic Counselor Name Role Phone Unavailable Primary Care Provider Unavailabl e Allergies No known active allergies Medications sertraline (ZOLOFT) 25 mg tablet Take 25 mg by mouth daily. Active multivitamin (DAILY-JOSE) tablet Take 1 Tablet by mouth daily. Flinstone vitamin Active OTHER Fiber gummy daily Active famotidine (PEPCID) 20 mg tabletIndication s:Gastritis, presence of bleeding unspecified, unspecified chronicity, unspecified gastritis type,Duodenitis Take 1 Tablet (20 mg) by mouth 2 times daily. 60 Tablet 0 Active Active Problems No known active problems Family History Medical History Relation Name Comments Other Brother Other Mother Relation Name Status Comments Brother Alive Mother Alive Social History Tobacco Use Types Packs/Day Years Used Date Smoking Tobacco: Passive Smo ke Exposure - Never Smoker Smokeless Tobacco: Never Comments No Sex and Gender Information Value Date Recorded Sex Assigned at Not on file Legal Sex Female 10:17 AM CDT Gender Identity Not on file Sexual Orientation Not on file Last Filed Vital Signs Vital Sign Reading Time Taken Comments Blood Pressure 108/62 01/19/2020 3:40 PM CDT Pulse 68 01/19/2020 3:40 PM CDT Temperature 36.7 ??C (98 ??F) 01/19/2020 3:40 PM CDT Respiratory Rate 20 01/19/2020 3:40 PM CDT Oxygen Saturation 99% 01/19/2020 3:40 PM CDT Inhaled Oxygen Concentration - - Weight 61.8 [...] (1 of 3 - 19+ 3-dose series) 03/18 CERVICAL CANCER SCREENING 2023 HPV/Cotest (21-29) 2023 PAP SMEAR 2023 INFLUENZA VACCINE (#1) 2023 Medical Devices Implanted Type Area Central Supply Tech Device Identifier Shelf Expiration Date Model / Serial / Lot Capsule Clifton Ph Test [id number] - [id number] Implanted:Qty: 1 on 01/19/2020 by Mick Lovell MD at [facility] Other N/A: Esophagus [employer] 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 GIVEN [id number] / / Description:implanted at [facility] [place] [address] [place] [address]
--- OUTSIDE RECORDS SUMMARY | 2024-09-04 18:04 | XMS_ITS | Continuity of Care Document ---
Author Organization [facility] Address [id number] [address] Phone Care Team Providers Care Shaper And Presser Name Role Phone Grey Seymour DDS Unavailable Unavailable Allergies, Adverse Reactions, Alerts Substance Reaction Status Criticality No Known Allergies Active No Inform ation Medications Medication Instructions Dosage Effective Dates (start - stop) Status Comments ibuprofen 600 mg tablet take 1 tablet by oral route every 6 hours with food as needed for pain - Active hydrocodone 5 mg-acetaminophen 325 mg tablet take 1 tablet by oral route every 6 hours as needed for pain as needed - Active Procedures Procedure Date Resin-Based Composite ??? Four Or More S urfaces Or I Oral Hygiene Instructions Nutritional Counseling For Control Of De ntal Disea Caries Low Risk Treatment Plan Complete Duplicate Encounter Intraoral ??? Periapical First Film No Work Today/No Charge Bitewings ??? Four Films Intraoral ??? Periapical Each Additional Film Intraoral ??? Periapical Each Additional Film Intraoral ??? Periapical Each Additional Film Intraoral ??? Periapical Each Additional Film Prophylaxis ??? Adult Topical Fluoride Varnish; Therapeutic Ap plication Comprehensive Oral Evaluation ??? New Or Established Removal Of Impacted Tooth ??? Partially Bony Removal Of Impacted Tooth ??? Partially Bony IV Moderate (conscious) Sedation/analges ia, First 15 Min IV Moderate (conscious) Sedation/analges ia, Ea Addl 15 Min Extraction, Erupted Tooth Or Exposed Nancy t (Elevati Removal Of Impacted Tooth ??? Soft Tissu e EDR Approval Note Treatment Plan Complete NO CHARGE Advance Directives Directive Yes / No Effective Date File Name No Information Encounters Encounter Description Practice Location Reason(s) For Visit Diagnoses Date Provider Providers Copied on Encounter [facility], [id number] [place], [place], [id number], [place] tel:[phone] [facility] No Information Lion Edmonds. [address] [place], [address], [place]. tel:[phone] Referring Provider: Grey Ramírez, [address] [place], [address]. tel:[phone] [facility], [id number] [place], [place], [id number], [place] tel:[phone] [facility] Encounter for dental exam and cleaning w/o abnormal findings Lion Edmonds. [address] [place], [address], [place]. tel:[phone] Referring Provider: Grey Ramírez, [address] [place], [address]. tel:[phone] [facility], [id number], [id number], [place] tel:[phone] [facility] No Information Lion Edmonds. [address] [place], [address], [place]. tel:[phone] Referring Provider: Grey Ramírez, [address] [place], [address]. tel:[phone] [facility], [id number], [id number], [place] tel:[phone] [facility] No Information Kandy Collazo. [address] [place], [address], [place]. tel:[phone] Referring Provider: Zay Bobby, [address] [place], [address]. tel:[phone] [facility], [id number], [id number], [place] tel:[phone] [facility] Encounter for dental exam and cleaning w/o abnormal findings Kandy Collazo. [address] [place], [address], [place]. tel:[phone] Referring Provider: Zay Bobby, [address] [place], [address]. tel:[phone] Family History Family Member Type Diagnosis Age At Onset No Information Payers Payer name Insurance type Covered republican ID Andreiheidi adriana(s) D [facility] Medicaid [id number] Social History Type Description Quantity Date Captured Comments Alcohol Use Details No Caffeine Use Details Unknown Tobacco Use Status Smoking Status No Information Sex Female Sexual Orientation Heterosexual Gender Identity Female Chief Complaint And Reason For Visit No Information Reason For Referral Reason For Referral No Information History Of Present Illness Encounter Date Complaint History Of Prese nt Illness No Information Functional Status Date Functional Assessmen t No Information Instructions Date Instruction Additional Infor osmin Lifestyle education Related to D ental Examination Assessments Type Assessment Date No Information Patient Care Teams Name Effective Dates (start - stop) Status Members No Information
[2024-09-04 18:15] VITALS: BMI 35.4
[2024-09-04 18:22] VITALS: BP 117/74; PULSE 107
[2024-09-04 18:32] LABS: Basophils # 0.1 10^3/uL (0.0-0.1); Basophils % 0.4 %; Eosinophils # 0.1 10^3/uL (0.0-0.8); Eosinophils % 0.6 %; Hematocrit 36.5 % (36-47); Lymphocytes # 2.2 10^3/uL (0.8-4.8); Lymphocytes % 17.3 %; Mean Corpuscular HGB Conc 32.6 g/dL (30-55); Mean Corpuscular Hemoglobin 27.2 pg (27-33); Mean Corpuscular Volume 83.5 fl (85-98); Mean Platelet Volume 10.5 fL (7.4-10.4); Monocytes # 0.9 10^3/uL (0.2-0.9); Monocytes % 7.2 %; Neutrophils # 9.18 10^3/uL (1.8-7.7); Neutrophils % 73.7 %; Nucleated Red Blood Cells % 0 %; Platelet Count 402 10^3/cmm (157-399); Red Blood Count 4.37 10^6/uL (3.85-5.65); Red Cell Distribution Width 14.6 % (12.1-15.1); White Blood Count 12.46 10^3/uL (3.29-11.43)
[2024-09-04] MEDS: miSOPROStol 100 mcg tablet 25 MCG VAGINAL (18:53)
[2024-09-04 19:11] LABS: Amphetamines Screen Urine Negative (Negative); Barbiturates Screen Urine Negative (Negative); Benzodiazepines Screen Urine Negative (Negative); Cocaine Screen Urine Negative (Negative); Opiate Screen Urine Negative (Negative); PCP Screen Urine Negative (Negative); THC Screen Urine Negative (Negative)
[2024-09-04 19:23] VITALS: BP 119/75; PULSE 102
--- NOTE | 2024-09-04 19:30 | PC.NURSE ---
Accucheck 111
[2024-09-04 19:53] VITALS: BP 120/72; PULSE 93; TEMP 36.7
[2024-09-04 21:06] VITALS: BP 129/74; PULSE 88
--- NOTE | 2024-09-04 21:16 | PM.HP ---
Providers/Chief Complaint Admitting Physician: Jimenez Escobedo MD Primary Care Provider: Jimenez Escobedo MD Chief Complaint: IOL History of Present Illness Shazia Lawrence is a 24 year old @ 39.0 wks by 8 wk US inconsistent with unsure LMP. Preg c/b recent miscarriage, THC use in early 1st TM, Vaping in 1st TM, low iron, gDM on insulin. The patient presented to labor and delivery triage for a scheduled induction of labor secondary to gestational diabetes. The patient has been using Lantus 17 units twice a day for control of her blood sugar. Her blood sugars initially were ranging quite high, however with the insulin they came down into a better controlled range. Upon presentation to labor and delivery, her initial blood sugar was 111. The patient has been taking iron secondary to iron deficiency anemia. Her hemoglobin upon presentation is now within normal range at 11.9. The patient has been feeling well overall at this time. She denies any fevers, chest pain, shortness of breath, nausea, vomiting, diarrhea, constipation, dysuria, leakage of fluid, vaginal bleeding. She has not been feeling any regular contractions. She feels well overall. Medications/Allergies Home Medications ?Medication ?Instructions ?Recorded ?Confirmed ?Last Taken ?Type vitamin-ferrous fumarate 1 tab PO DAILY #90 tabs 12/23/23 09/03/24 08/30/24 Rx 28 mg iron-folic acid 800 mcg tablet ( Vitamins with Minerals) doxylamine succinate 25 mg tablet See Rx Instructions .Route 01/25/24 09/03/24 08/30/24 Rx .COMPLEX PRN allergy symptoms #30 tabs pyridoxine (vitamin B6) 100 mg 100 mg PO BID PRN Nausea #60 tabs 01/25/24 09/03/24 08/30/24 Rx tablet blood sugar diagnostic (OneTouch #100 ea 07/15/24 09/03/24 Unknown Rx Ultra Test strips) lancets 33 gauge (OneTouch Delica #100 ea 07/15/24 09/03/24 08/30/24 Rx Plus Lancet) pen needle, diabetic 31 gauge x #100 ea 07/22/24 09/03/24 08/30/24 Rx 5/16 (TechLITE Pen Needle) blood-glucose meter (OneTouch #1 ea 08/12/24 09/03/24 Unknown Rx Ultra2 Meter) triamcinolone acetonide 0.1 % 1 applic topical DAILY #30 grams 08/12/24 09/03/24 08/30/24 Rx topical cream insulin glargine 100 unit/mL (3 17 unit SUBCUT BID 08/26/24 09/03/24 08/30/24 History mL) subcutaneous pen (Lantus Solostar U-100 Insulin) Allergies Allergy/AdvReac Type Severity Reaction Status Date / Time No Known Allergies Allergy Verified 05/12/24 06:53 PFSH Acute PFSH: Medical History History of miscarriage Miscarriage Irregular periods No pertinent past medical history neghx: htn,dm,thyroid,dvt/pe Iron deficiency anemia Constipation Adolescent depression Surgical History History of esophagogastroduodenoscopy (EGD) (~2019) Family History Mother Cervical cancer dx age 21 Pre-diabetes Grandmother Diabetes Maternal and Paternal Grandfather Heart disease Maternal Brother Hypertension Denies family history of Colon cancer Ovarian cancer Hypercholesteremia Breast cancer Bleeding disorder Uterine cancer Stroke Social History Smoking and tobacco/nicotine status: never used tobacco/nicotine Alcohol intake: never Substance/Drug Use: former Former substance use details: Quit marijuana since finding out she was Female Reproductive History: : 2 Para: 0 Spontaneous abortions: No Vitals/I&O/Wt Last Vital Signs Pulse 88 09/04/24 21:06 BP 129/74 09/04/24 21:06 O2 Del Method Room Air 09/04/24 18:15 Weight last 48 hrs Weight 194 lb Physical Exam Narrative: General: Alert and oriented x3 Eyes: Pupils equal round and reactive to light and accommodation Mouth: Mucous membranes moist, pharynx non-erythematous Cardiac: Regular rate and rhythm without murmurs Lungs: Clear to auscultation bilaterally without wheezes, crackles or rhonchi Abdomen: Soft, non-tender, fundus consistent with gestational age Extremities: Trace edema in the bilateral lower extremities Data 09/04/24 18:24 A&P Assessment and plan (1) Supervision of high risk , unspecified, third trimester: The patient is doing well overall at this time. heart tones are in the mid 130s with moderate variability and good accelerations with a category 1 tracing. Upon presentation she was not having any contractions. The patient has been given 1 dose of Cytotec and has done well with that so far. She received her first dose around 1850 on the evening of 09/04/2024. The patient is eryn every 2 to 3 minutes at this time. They are not very painful so far. Initial blood sugar is in a good range. We will plan to give insulin if her blood sugar gets above 120. Overall she is doing well. Will plan to continue with routine intrapartum management otherwise. The patient would like to have an epidural. She may have this when she gets 2 to 3 cm or beyond. All questions were answered. The patient and her are in agreement with the current plan of care. (2) Gestational diabetes: PDMP PDMP Reviewed: Not Reviewed Attestations Medical Necessity Statement*: The patient will be here for greater than 2 midnights due to routine intrapartum and management of labor and delivery. Coding Level of Care Code Acute Code for Chg Fwd Diagnoses Supervision of high risk , unspecified, third trimester O09.93 Gestational diabetes O24.419
[2024-09-04 21:47] VITALS: BP 120/64; PULSE 87
[2024-09-04 22:39] VITALS: BP 123/68; PULSE 93
--- NOTE | 2024-09-04 23:30 | PC.NURSE ---
Accucheck 175
[2024-09-05] VITALS (61 sets, daily range): BP systolic 90–149; BP diastolic 44–98; PULSE 64–125; RESP 16; TEMP 36.4–36.8; O2SAT 98–100
[2024-09-05] MEDS: miSOPROStol 100 mcg tablet 25 MCG VAGINAL (00:54)
--- NOTE | 2024-09-05 01:48 | PC.NURSE ---
Blood glucose level per patient, taken on personal blood glucose monitoring system, is 158 as of 0145. Will follow insulin protocol per MD orders.
[2024-09-05] MEDS: insulin lispro 100 unit/1 mL SUBCUT (01:55)
--- NOTE | 2024-09-05 05:00 | PC.NURSE ---
Accucheck 98
[2024-09-05] MEDS: sodium chloride 0.9% 1,000 ML 999 ML IV ×2 (06:50→07:48)
[2024-09-05] MEDS: ROPivacaine syringe 100 MG/50 ML SYRINGE 10 MG EPIDURAL ×3 (08:21→15:38)
--- NOTE | 2024-09-05 08:26 | ANES.PAUD2 ---
Pre-Anesthetic Update Pre-Anesthetic Assessment: Date of Surgery/Procedure: 09/05/24 Changes from Pre-Anesthetic Assessment: No changes since patient was seen in preoperative clinic. Labs from today reviewed and acceptable for procedure. Patient would like to proceed with epidural placement Labs Last 48hrs: Short CBC 09/04/24 Range/Units 18:24 WBC 12.46 H (3.29-11.43) 10^ 3/uL Hgb 11.90 (11.27-16.99) g/ dL Hct 36.5 (36-47) % MCV 83.5 L (85-98) fl Plt Count 402 H (157-399) 10^3/c mm Neut % (Auto) 73.7 % Neut # (Auto) 9.18 H (1.8-7.7) 10^3/u L Blood Bank 09/04/24 18:24 Blood Type A Positive Rho(D) Type Rh positive Antibody Screen Negative Vitals: Temperature 98.2 F 09/05/24 05:11 Pulse Rate 103 H 09/05/24 08:24 Respiratory Effort Spontaneous, Non- Labored 09/04/24 18:15 Respiratory Depth Normal 09/04/24 18:15 Respiratory Patter n Normal 09/04/24 18:15 Blood Pressure 126/60 09/05/24 08:24 Pulse Oximetry 99 09/05/24 08:18 Oxygen Delivery Me thod Room Air 09/05/24 06:10 Cardiac Studies: No Data to Display
--- NOTE | 2024-09-05 08:27 | P.ANES_ITS ---
Anesthesia Procedures Procedure/Date: 09/05/24 Epidural: Time Out Performed: Yes Consents Signed: Procedure Consent Consent: requested by attending/covering physician and from patient Lumbar Level: L3-L4 Epidural position: sitting Epidural procedure: sterile prep of area, 1% lidocaine to numb the area, 18 g needle, negative for paresthesia p assed, neg for paresthesia, test dose given, 1.5% xylocaine 1:200k epi, 0.2% Ropivacaine bolus ml, placed PCEA, no systemic response, sterile dressing applied, L.U.D. no apparent complications and 0.2% Ropiavacaine @ mls/hr Additional Comments: Ropivacaine 0.2% set at 10 mL/h
[2024-09-05] MEDS: dextrose 5%-lactated ringers 1,000 ML 125 ML IV ×2 (09:15→13:43)
[2024-09-05 13:42] LABS: Glucose Point of Care 119 mg/dL (70-110)
[2024-09-05 13:42] LABS: Glucose Point of Care 102 mg/dL (70-110)
[2024-09-05] MEDS: oxytocin 30 UNIT/500 ML BAG IV (16:40)
[2024-09-05 17:24] LABS: Glucose Point of Care 85 mg/dL (70-110)
--- NOTE | 2024-09-05 19:29 | P.ANES_ITS ---
Anesthesia Procedures Procedure/Date: 09/05/24 Procedure Narrative: APARTMENT COORDINATOR at bedside at 1928, epidural bolus given 100mcg fentanyl and 3ml 0.25% bupi. at 192 on left side, pt states left leg feels more numb. 5ml bupi given at 193 and turned onto back. pt states pain decreased.
[2024-09-05] MEDS: ROPivacaine syringe 100 MG/50 ML SYRINGE 12 MG EPIDURAL ×2 (20:00→22:59)
[2024-09-05 20:39] LABS: Glucose Point of Care 86 mg/dL (70-110)
--- NOTE | 2024-09-05 20:39 | P.PN_ITS ---
Subjective 2 Subjective: The patient is doing well throughout the day. She received 2 doses of Cytotec overnight and continued to contract well with these. No IV Pitocin was needed for quite some time as she was making good cervical change. The patient received a laboring epidural which has not provided adequate anesthesia initially but after further intervention by anesthesia she is now comfortable. The patient has been sitting at sick centimeters for a number of hours, so we discussed the option of proceeding with AROM. She is open to this if I feel that it is safe. Vitals/I&O/Wt Last Vital Signs Temp 97.9 F 09/05/24 13:00 Pulse 74 09/05/24 20:30 BP 126/65 09/05/24 20:30 Pulse Ox 99 09/05/24 08:18 O2 Del Method Room Air 09/05/24 06:10 09/05/24 09/05/24 09/05/24 06:59 14:59 22:59 Intake Total 3011.034 / 3011.034 590.833 / 3601.867 Output Total 1200 / 1200 1000 / 2200 Balance 1811.034 / 1811.034 -409.167 / 1401.867 Weight last 48 hrs Weight 194 lb Physical Exam 2 Narrative: General: Alert and oriented x3 Cardiac: Regular rate and rhythm without murmurs Lungs: Clear to auscultation bilaterally without wheezes, crackles or rhonchi Abdomen: Soft, fundus consistent with gestational age Extremities: Trace edema in the bilateral lower extremities Urinary Catheter Management: Nguyen: Cath Placed During This Visit: yes Reason for Continuing Indwelling Catheter: Required Immobilization for Trauma or Surgery or Anesthesia Urinary Catheter Date of Insertion: 09/05/24 Urinary Catheter Time of Insertion: 08:50 Data 09/04/24 18:24 A&P Assessment and plan (1) Supervision of high risk , unspecified, third trimester: The patient is doing well at this time. AROM was performed and clear fluid was noted. heart tones are currently in the mid 140s with moderate variability good accelerations with category 1 tracing. She is eryn every 2 to 3 minutes. She is on IV Pitocin. Last blood sugar was 84. She has not needed any short acting insulin up to this point. We will continue with intrapartum management. All questions were answered. The patient and her family are in agreement with the current plan of care. (2) Gestational diabetes: PDMP PDMP Reviewed: Not Reviewed Attestations 2 Medical Necessity Statement*: The patient will be here for greater than 2 midnights due to routine intrapartum and management of labor and delivery. Coding Level of Care Code Acute Code for Chg Fwd Diagnoses Supervision of high risk , unspecified, third trimester O09.93 Gestational diabetes O24.419
[2024-09-05] MEDS: dextrose 5%-lactated ringers 1,000 ML 116 ML IV (22:02)
[2024-09-05 23:22] LABS: Glucose Point of Care 86 mg/dL (70-110)
[2024-09-06] VITALS (156 sets, daily range): BP systolic 103–156; BP diastolic 53–80; PULSE 68–139; RESP 14–17; TEMP 36.6–38.5; O2SAT 89–100
[2024-09-06] MEDS: ROPivacaine syringe 100 MG/50 ML SYRINGE 12 MG EPIDURAL (01:19)
[2024-09-06 01:28] LABS: Glucose Point of Care 94 mg/dL (70-110)
[2024-09-06] MEDS: ampicillin 1,000 MG in sodium chloride 0.9% (plus) 50 ML 100 MG IV ×4 (02:02→20:01)
--- NOTE | 2024-09-06 02:05 | PM.MISC ---
Miscellaneous Note Purpose of Documentation: The patient has been pushing for approximately 2-1/2 hours. Unfortunately during this timeframe she has not made significant change and the head has not descended past the pubic bone. With pushing she has very good pressure, but directly after pushing the head retreats back into the vaginal canal. I discussed the risks of this with the patient including the risk for shoulder dystocia especially in the setting of gestational diabetes on insulin. The mother also has a fever at this time and I am concerned that she may be developing chorioamnionitis. With these risk factors I believe that it is best to proceed with a primary low-transverse section. I spoke with the patient regarding this as well as other options including continuing to push or doing a vacuum assisted vaginal delivery and the patient is in agreement with myself that a section would be the safest option based on current risk factors. The patient will be started on IV ampicillin and gentamicin as well as clindamycin for coverage of anaerobic bacteria due to rupture of membranes prior to section. All questions were answered. Will proceed with a primary low-transverse .
[2024-09-06] MEDS: metoclopramide 5 mg/mL SDV 2 mL 10 MG IV (02:24)
[2024-09-06] MEDS: famotidine 20 mg/2 mL INJ IVP (02:24)
[2024-09-06] MEDS: GENTAMICIN IV (02:29)
[2024-09-06] MEDS: SODIUM CHLORIDE 0.9% IV (02:29)
--- NOTE | 2024-09-06 03:13 | P.ANESUD_ITS ---
Pre-Anesthetic Update Pre-Anesthetic Assessment: Date of Surgery/Procedure: 09/06/24 Proposed Procedure: Operation Date: 09/06/24 02:30 Proposed Procedures p Section(Not Applicable) - Jimenez Escobedo MD Changes from Pre-Anesthetic Assessment: Team was called in at 0200 for emergent . Patient has been pushing for 2 and half hours at this time with failure to progress. Patient is also febrile with temp of 101.5. Epidural appears to be working at this time. Will plan on dosing of epidural for . Discussed with the patient the risk of nee ding to go all the way to sleep if epidural does not set up fully. She consents to this and would like to proceed. Labs Last 48hrs: Short CBC 09/04/24 Range/Units 18:24 WBC 12.46 H (3.29-11.43) 10^ 3/uL Hgb 11.90 (11.27-16.99) g/ dL Hct 36.5 (36-47) % MCV 83.5 L (85-98) fl Plt Count 402 H (157-399) 10^3/c mm Neut % (Auto) 73.7 % Neut # (Auto) 9.18 H (1.8-7.7) 10^3/u L Blood Bank 09/04/24 18:24 Blood Type A Positive Rho(D) Type Rh positive Antibody Screen Negative Vitals: Temperature 97.6 F 09/05/24 23:11 Temperature Source Temporal Artery S can 09/05/24 23:11 Pulse Rate 128 H 09/06/24 02:31 Respiratory Rate 16 09/05/24 23:11 Respiratory Effort Spontaneous, Non- Labored 09/04/24 18:15 Respiratory Depth Normal 09/04/24 18:15 Respiratory Patter n Normal 09/04/24 18:15 Blood Pressure 130/65 09/06/24 02:29 Pulse Oximetry 97 09/06/24 02:31 Oxygen Delivery Me thod Room Air 09/05/24 06:10 Cardiac Studies: No Data to Display
[2024-09-06] MEDS: tranexamic acid 1,000 MG/100 ML PREMIX 600 MG IV (03:58)
[2024-09-06] MEDS: miSOPROStol 200 mcg Tablet 800 MCG PR (03:58)
--- NOTE | 2024-09-06 04:07 | PM.OP ---
Operative Report Date of procedure: September 06, 2024 Pre-op diagnosis: 1. Intrauterine at 39.2 weeks gestation 2. Gestational diabetes on insulin 3. Arrest of descent with concern for cephalopelvic disproportion Post-op diagnosis: 1. Intrauterine status post primary low-transverse section at 39.2 weeks gestation 2. Gestational diabetes on insulin 3. Arrest of descent consistent with cephalopelvic disproportion 4. Delivery of healthy male weighing 8 pounds 5 ounces with Apgars of 8 and 9 Post-op findings: was in the OA position. Infant's head had moderate molding but was not well engaged in the pelvis. Findings consistent with cephalopelvic disproportion. Procedure done: Primary low-transverse section Specimens removed/disposition: Placenta discarded Surgeon: Jimenez Escobedo MD Estimated blood loss (mL): 650 Urine output: 800 mL Complications: The patient had moderate bleeding approximately 20 minutes after delivery. She was given Cytotec rectally and 1 dose of TXA IV. Her bleeding has responded well and is currently scant. Findings: 1. Healthy infant male weighing 8 pounds 5 ounces with Apgars of 8 and 9 2. Intact placenta with moderate to heavy calcifications. Central umbilical cord insertion site with three-vessel cord. Brief History: Shazia Lawrence is a 24 year old G2 now P1 status post primary low-transverse section @ 39.2 wks by 8 wk US inconsistent with unsure LMP. Preg c/b recent miscarriage, THC use in early 1st TM, Vaping in 1st TM, low iron, gDM on insulin. The patient presented to labor and delivery triage for a scheduled induction of labor secondary to gestational diabetes. The patient had been using Lantus 17 units twice a day for control of her blood sugar. Her blood sugars initially were ranging quite high, however with the insulin they came down into a better controlled range. Upon presentation to labor and delivery, her initial blood sugar was 111. The patient has been taking iron secondary to iron deficiency anemia. Her hemoglobin upon presentation is now within normal range at 11.9. The patient was brought in for induction of labor on the evening of 09/04/2024. She was given 2 doses of Cytotec and made cervical change. She was able to make change on her own from there up to 6 cm dilation, however then failed to make further change, so IV Pitocin was started. The patient had regular contractions, however did not make significant change, so AROM was performed at 2001 on 09/05/2024 and clear fluid was noted. The patient then began to make regular change and was complete by 2339 on 09/05/2024. The patient began pushing at 2340 on 09/05/2024. She pushed very well and had contractions every 1 to 2 minutes. By 2:00 AM on 09/06/2024, the infant was still in the -1 position and had not descended beyond the pubic bone. We discussed the risks of proceeding with pushing in regards to increased risk of shoulder dystocia. With her complications of gestational diabetes as well as developing fever with concern for chorioamnionitis it was felt best to proceed with a primary low-transverse section. The patient and her family were in agreement. Procedure: After informed consent was obtained, the patient was taken to the operating room and the patient was prepped and draped in a normal sterile fashion in the dorsal supine position.? A spinal was placed and adequate anesthesia was obtained.? At 2:50 AM on 09/06/2024 a Pfannenstiel skin incision was made and carried through to the underlying layer of fascia using a scalpel.? The fascial incision was then extended laterally using curved Mayos.? The fascia was then grasped with Michelle clamps and the underlying rectus muscles were dissected off taking care to avoid injury to the underlying tissues.? The peritoneum was entered bluntly with one digit.? It was then bluntly.? The bladder blade was placed and the vesicouterine peritoneum was well below the lower uterine segment of the uterus.? The uterine incision was made in the lower uterine segment in a transverse fashion with the scalpel at 2:53 AM.? The amniotic membrane was entered bluntly and a moderate amount of clear fluid was noted.? Uterine pressure was placed and the infant's head delivered without complication at 2:54 AM on 09/06/2024.? There was no nuchal cord.? The mouth and nose were suctioned.? The rest of the infant delivered without difficulty.? The infant took a breath immediately upon delivery.? The cord was clamped and cut and the was handed to the awaiting pediatric nurses.? The placenta was then manually expressed.? The uterus was exteriorized from the abdomen.? A wet lap was used to clear the uterus of clots and debris.? The bladder blade was reinserted and the uterine incision was closed using 0 chromic in a running locking fashion.? The uterus was noted to be boggy.? IV Pitocin was bolused. A second layer of the same suture was used in the same manner.? Excellent hemostasis was obtained. At this point the uterus had started to firm up. Next the posterior cul-de-sac was inspected and was cleared of any blood. The gutters were cleared of any further clots and debris and the uterine incision was again inspected and hemostasis was noted.? The subfascial tissue was inspected for hemostasis and the peritoneum was re-approximated using 2-0 plain in a running fashion.? The fascia was then re-approximated using 0 Vicryl in a running fashion.? The subcutaneous tissue was inspected for hemostasis.? Jo's fascia was then re-approximated using 3-0 plain in a running fashion.? Good hemostasis was noted.? The subcutaneous tissue was then re-approximated using a subcuticular stitch.? The patient tolerated the procedure well and was recovered in stable condition.? Estimated blood loss was 650 mL. Urine in the Nguyen catheter was clear. The patient was taken to recovery in good condition.
--- NOTE | 2024-09-06 04:22 | ANE.PACU2 ---
Inpatient post-anesthesia follow up: Airway intact: Yes Vital signs: Temperature 98.3 F Pulse Rate 76 Respiratory Rate 16 Blood Pressure 117/59 Pulse Oximetry 97 Oxygen Delivery Me thod Room Air Oxygen Flow Rate Fraction of Inspir ed Oxygen Hydration adequate: Yes Nausea and vomiting: No Pain level: 1 Mental status: Baseline
[2024-09-06] MEDS: dextrose 5%-lactated ringers 1,000 ML 116 ML IV (05:17)
[2024-09-06] MEDS: PRENATAL VIT NO.130/IRON/FOLIC 1 EACH TABLET PO (08:40)
[2024-09-06] MEDS: docusate sodium 100 mg Capsule PO ×2 (08:40→18:09)
[2024-09-06] MEDS: clindamycin 900 MG/50 ML PREMIX 100 MG IV ×2 (11:01→18:09)
[2024-09-06] MEDS: ketorolac 30 mg/mL INJ IVP ×3 (11:01→22:33)
[2024-09-06] MEDS: oxyCODONE-APAP 5-325 mg Tablet PO ×2 (11:25→18:09)
[2024-09-06 16:00] LABS: Hematocrit 28.1 % (36-47); Mean Corpuscular HGB Conc 32.7 g/dL (30-55); Mean Corpuscular Hemoglobin 27.5 pg (27-33); Mean Corpuscular Volume 84.1 fl (85-98); Mean Platelet Volume 10.7 fL (7.4-10.4); Platelet Count 329 10^3/cmm (157-399); Red Blood Count 3.34 10^6/uL (3.85-5.65); Red Cell Distribution Width 14.7 % (12.1-15.1); White Blood Count 17.78 10^3/uL (3.29-11.43)
[2024-09-07] VITALS (9 sets, daily range): BP systolic 113–123; BP diastolic 60–72; PULSE 73–88; RESP 15–16; TEMP 36.6–36.7; O2SAT 99
[2024-09-07] MEDS: oxyCODONE-APAP 5-325 mg Tablet PO ×3 (02:15→19:52)
[2024-09-07] MEDS: ampicillin 1,000 MG in sodium chloride 0.9% (plus) 50 ML 100 MG IV (02:15)
[2024-09-07] MEDS: clindamycin 900 MG/50 ML PREMIX 100 MG IV (02:59)
[2024-09-07] MEDS: PRENATAL VIT NO.130/IRON/FOLIC 1 EACH TABLET PO (09:13)
[2024-09-07] MEDS: docusate sodium 100 mg Capsule PO ×2 (09:13→20:48)
[2024-09-07] MEDS: ferrous sulfate EC 325 mg Tablet PO (09:14)
[2024-09-07] MEDS: ibuprofen 800 mg tablet PO ×3 (09:14→20:48)
--- NOTE | 2024-09-07 15:44 | P.PN_ITS ---
Subjective 2 Subjective: The patient is doing well overall at this time. Her pain is well-controlled. She is ambulating, voiding, passing gas and tolerating food by mouth. Her bleeding has been decreasing well. She has no concerns at this point. Vitals/I&O/Wt Last Vital Signs Temp 98.0 F 09/07/24 12:00 Pulse 73 09/07/24 11:52 Resp 15 09/07/24 12:03 BP 122/61 09/07/24 11:52 Pulse Ox 99 09/07/24 04:26 O2 Del Method Room Air 09/07/24 04:26 09/07/24 09/07/24 09/07/24 06:59 14:59 22:59 Intake Total 1100 / 2830.366 Balance 1100 / 1330.366 Physical Exam 2 Narrative: General: Alert and oriented x3 Cardiac: Regular rate and rhythm without murmurs Lungs: Clear to auscultation bilaterally without wheezes, crackles or rhonchi Abdomen: Soft, mild to moderate tenderness over uterus. The uterus is firm and 2 cm below the umbilicus. Incision is clean and dry without signs of infection or dehiscence. Extremities: +1 pitting edema in the bilateral lower extremities Urinary Catheter Management: Nguyen: Cath Placed During This Visit: yes, but has since been removed by the nurse Reason for Continuing Indwelling Catheter: Decision to DC Catheter Urinary Catheter Date of Insertion: 09/05/24 Urinary Catheter Time of Insertion: 08:50 Date Urinary Catheter Removed: 09/06/24 Time Urinary Catheter Discontinued: 15:49 Data 09/06/24 15:52 A&P Assessment and plan (1) Status post section: The patient is doing well overall at this time. She is showing no signs of complications. Her bleeding has decreased well. Her hemoglobin did decrease from 11.9-9.2. She did have some heavier bleeding after her delivery and was given TXA and Cytotec which helped to resolve this right away. We will plan to start iron for treatment of the anemia. We discussed routine care to decrease risk for infection and complications. All questions were answered. We will plan to discharge home tomorrow as long as everything continues to go well. The patient and her family are in agreement with current plan of care. PDMP PDMP Reviewed: Not Reviewed Attestations 2 Medical Necessity Statement*: The patient will be here for greater than 2 midnights due to routine intrapartum and management after section. Coding Level of Care Code Acute Code for Chg Fwd Diagnoses Status post section Z98.891
[2024-09-08 05:04] VITALS: BP 116/71; PULSE 85; TEMP 35.7
--- NOTE | 2024-09-08 07:46 | PM.DCS ---
Discharge Providers Date of Admission: 09/04/24 18:00 Date of Discharge: September 08, 2024 Attending Provider at Admission: Jimenez Escobedo MD Attending Provider at Discharge: Jimenez Escobedo MD Primary Care Provider: Jimenez Escobedo MD Diagnoses at Discharge Discharge Diagnosis (1) Status post section: Status: Acute Other Information Additional DC diagnoses/information: 1. Intrauterine status post primary low-transverse section at 39.2 weeks gestation 2. Gestational diabetes on insulin 3. Arrest of descent consistent with cephalopelvic disproportion 4. Delivery of healthy male weighing 8 pounds 5 ounces with Apgars of 8 and 9 Reason for Visit Reason for Visit: IOL Brief History: Shazia Lawrence is a 24 year old G2 now P1 status post primary low-transverse section @ 39.2 wks by 8 wk US inconsistent with unsure LMP. Preg c/b recent miscarriage, THC use in early 1st TM, Vaping in 1st TM, low iron, gDM on insulin. The patient presented to labor and delivery triage for a scheduled induction of labor secondary to gestational diabetes. The patient had been using Lantus 17 units twice a day for control of her blood sugar. Her blood sugars initially were ranging quite high, however with the insulin they came down into a better controlled range. Upon presentation to labor and delivery, her initial blood sugar was 111. The patient had been taking iron secondary to iron deficiency anemia. Her hemoglobin upon presentation was within the normal range at 11.9 upon admission. Hospital Course Hospital Course The patient was brought in for induction of labor on the evening of 09/04/2024. She was given 2 doses of Cytotec and made cervical change. She was able to make change on her own from there up to 6 cm dilation, however then failed to make further change, so IV Pitocin was started. The patient had regular contractions, however did not make significant change, so AROM was performed at 2001 on 09/05/2024 and clear fluid was noted. The patient then began to make regular change and was complete by 2339 on 09/05/2024. The patient began pushing at 2340 on 09/05/2024. She pushed very well and had contractions every 1 to 2 minutes. By 2:00 AM on 09/06/2024, the was still in the -1 position and had not descended beyond the pubic bone. We discussed the risks of proceeding with pushing in regards to increased risk of shoulder dystocia. With her complications of gestational diabetes as well as developing fever with concern for chorioamnionitis it was felt best to proceed with a primary low-transverse section. The patient and her family were in agreement. The patient had heavy bleeding initially after delivery and was given TXA and Cytotec. After this her bleeding decreased well. the patient has done well. She is ambulating, voiding, passing gas and tolerating food by mouth. Her pain has been well-controlled. She has no signs of infection in her incision site. We discussed routine care and care for her incision site. All questions were answered. Currently the patient is doing well and we will plan for discharge home today. She will plan to follow-up with me in clinic at 2 weeks or sooner if needed. Physical Exam Narrative: General: Alert and oriented x3 Cardiac: Regular rate and rhythm without murmurs Lungs: Clear to auscultation bilaterally without wheezes, crackles or rhonchi Abdomen: Soft, mild to moderate tenderness over uterus. The uterus is firm and 2 cm below the umbilicus. Incision is clean and dry without signs of infection or dehiscence. Extremities: +1 pitting edema in the bilateral lower extremities Urinary Catheter Management: Nguyen: Cath Placed During This Visit: yes, but has since been removed by the nurse Reason for Continuing Indwelling Catheter: Decision to DC Catheter Urinary Catheter Date of Insertion: 09/05/24 Urinary Catheter Time of Insertion: 08:50 Date Urinary Catheter Removed: 09/06/24 Time Urinary Catheter Discontinued: 15:49 Discharge Data Studies Completed and Pending Laboratory Results WBC 17.78 10^3/uL (3.29-11.43) H 09/06/24 15:52 RBC 3.34 10^6/uL (3.85-5.65) L 09/06/24 15:52 Hgb 9.20 g/dL (11.27-16.99) L 09/06/24 15:52 Hct 28.1 % (36-47) L 09/06/24 15:52 MCV 84.1 fl (85-98) L 09/06/24 15:52 MCH 27.5 pg (27-33) 09/06/24 15:52 MCHC 32.7 g/dL (30-55) 09/06/24 15:52 RDW 14.7 % (12.1-15.1) 09/06/24 15:52 Plt Count 329 10^3/cmm (157-399) 09/06/24 15:52 MPV 10.7 fL (7.4-10.4) H 09/06/24 15:52 Neut % (Auto) 73.7 % 09/04/24 18:24 Lymph % (Auto) 17.3 % 09/04/24 18:24 Morton % (Auto) 7.2 % 09/04/24 18:24 Eos % (Auto) 0.6 % 09/04/24 18:24 Baso % (Auto) 0.4 % 09/04/24 18:24 Neut # (Auto) 9.18 10^3/uL (1.8-7.7) H 09/04/24 18:24 Lymph # (Auto) 2.2 10^3/uL (0.8-4.8) 09/04/24 18:24 Morton # (Auto) 0.9 10^3/uL (0.2-0.9) 09/04/24 18:24 Eos # (Auto) 0.1 10^3/uL (0.0-0.8) 09/04/24 18:24 Baso # (Auto) 0.1 10^3/uL (0.0-0.1) 09/04/24 18:24 Nucleated RBC % (auto) 0 % 09/04/24 18:24 Nucleated RBCs # 0.0 /100WBC 09/04/24 18:24 POC Glucose 94 mg/dL (70-110) 09/06/24 01:25 Urine Opiates Screen Negative ng/mL (Negative) 09/04/24 18:37 Ur Barbiturates Screen Negative ng/mL (Negative) 09/04/24 18:37 Ur Phencyclidine Scrn Negative ng/mL (Negative) 09/04/24 18:37 Ur Amphetamines Screen Negative ng/mL (Negative) 09/04/24 18:37 U Benzodiazepines Scrn Negative ng/mL (Negative) 09/04/24 18:37 Urine Cocaine Screen Negative ng/mL (Negative) 09/04/24 18:37 U Marijuana (THC) Screen Negative ng/mL (Negative) 09/04/24 18:37 Blood Type A Positive 09/04/24 18:24 Rho(D) Type Rh positive 09/04/24 18:24 Antibody Screen Negative 09/04/24 18:24 Vitals Last Vital Signs Temp 96.3 F L 09/08/24 05:04 Pulse 85 09/08/24 05:04 Resp 16 09/07/24 19:52 BP 116/71 09/08/24 05:04 Pulse Ox 99 09/07/24 04:26 O2 Del Method Room Air 09/07/24 04:26 Discharge Plan Discharge Patient Disposition: Home Condition: Good Prescriptions: New oxycodone-acetaminophen 5-325 mg Tablet 1 tab PO Q6H PRN (Reason: Moderate To Severe Pain) Qty: 20 0RF ferrous sulfate 325 mg (65 mg iron) Tablet,Delayed Release (Dr/Ec) 325 mg PO BIDWM Qty: 30 0RF ibuprofen 800 mg Tablet 800 mg PO TID Qty: 60 0RF Continued vit-iron fum-folic ac [ Vitamin with Minerals] 28 mg iron- 800 mcg tablet 1 tab PO DAILY Qty: 90 4RF triamcinolone acetonide 0.1 % cream 1 applic topical DAILY Qty: 30 1RF Discontinued doxylamine succinate 25 mg tablet See Rx Instructions .Route .COMPLEX PRN (Reason: allergy symptoms) Qty: 30 6RF Rx Instructions: Take 1 tab by mouth each evening and 1/2 tab in the am as needed for nausea PRN; pyridoxine (vitamin B6) 100 mg tablet 100 mg PO BID PRN (Reason: Nausea) Qty: 60 3RF insulin glargine [Lantus Solostar U-100 Insulin] 100 unit/mL (3 mL) insulin pen 17 unit SUBCUT BID No Action (DME) pen needle, diabetic [TechLITE Pen Needle] 31 gauge x 5/16 needle See Rx Instructions .ROUTE .MEDSUPPLY Qty: 100 6RF Rx Instructions: As directed (DME) lancets [OneTouch Delica Plus Lancet] 33 gauge misc See Rx Instructions .ROUTE .MEDSUPPLY Qty: 100 12RF Rx Instructions: As directed (DME) OneTouch Ultra Test Strip See Rx Instructions .ROUTE .MEDSUPPLY Qty: 100 6RF Rx Instructions: As directed (DME) blood-glucose meter [OneTouch Ultra2 Meter] Misc See Rx Instructions .ROUTE .COMPLEX Qty: 1 0RF Dose Instruction: USE DIRECTED Rx Instructions: USE DIRECTED Discharge Orders: Discharge Order (Routine); Ordered 09/08/24 Ordered By: Jimenez Escobedo Referrals: Jimenez Escobedo MD [Primary Care Provider] - 09/21/24 10:10 am Discharge Diet: Regular Discharge Activity: Limit activity as instructed Patient Instructions: Depression (DC), Opioid Safety (DC), Preeclampsia and Eclampsia After Delivery (GEN), (DC), Hemorrhage (DC), OB Discharge Report, OB Food/Drug Interaction Guide, Opioid Safety, OB [facility], Abnormal Bleeding Activity Restrictions/Additional Instructions: Nothing per vagina for 6 weeks. Showers are recommended instead of baths for the first 6 weeks. Do not lift anything heavier than your in the car seat for the first 3 weeks, then gradually increase to full lifting at 6 weeks. If you have any concern for infection in your incision site, please seek immediate medical attention. You may use triamcinolone cream as needed to help with itching around your incision site. Discharge Attestations Time Spent in Discharge Care*: greater than 30 min Quality Metrics Clinical Quality Measures [ No reported AMI, CVA or VTE this stay] Coding Level of Care Code Acute Code for Chg Fwd Diagnoses Status post section Z98.891
[2024-09-08 08:51] VITALS: RESP 17
[2024-09-08] MEDS: oxyCODONE-APAP 5-325 mg Tablet PO (08:51)
[2024-09-08] MEDS: PRENATAL VIT NO.130/IRON/FOLIC 1 EACH TABLET PO (08:52)
[2024-09-08] MEDS: ibuprofen 800 mg tablet PO (08:52)
[2024-09-08] MEDS: docusate sodium 100 mg Capsule PO (08:52)
[2024-09-08] MEDS: ferrous sulfate EC 325 mg Tablet PO (08:52)
[2024-09-08 09:03] VITALS: BP 124/74; PULSE 89
[2024-09-08 09:30] VITALS: BP 124/74; PULSE 89; RESP 15; TEMP 36.8; O2SAT 98
== END 2024-09-08 09:30 | disposition home or self-care (01) | DRG 788 ==
PROVIDERS: Admitting Provider Family Medicine; PCP Family Medicine; Visit Provider Family Medicine
PROC: 10D00Z1 Extraction of Products of Conception, Low, Open Approach (ICD-10-PCS; CPT 59514; principal; 2024-09-06 02:30)
DX: O24.424 Gestational diabetes mellitus in childbirth, insulin controlled (principal); O65.9 Obstructed labor due to maternal pelvic abnormality, unspecified; O99.02 Anemia complicating childbirth; D50.9 Iron deficiency anemia, unspecified; Z3A.39 39 weeks gestation of pregnancy; Z37.0 Single live birth
CPT/HCPCS: 36415; 36416; 51702; 59025; 59409; 80306; 82962; 85025; 85027; 86850; 86900; 96372; 99211; J0290; J1580; J1815; J1885; J2405; J2590; J2765; J2795; J3010; J3490; J7030; J7121; J9999

== ENCOUNTER → 2024-10-21 08:15 | Outpatient (BNVA) | payer MEDICAID, SELFPAY | PROVIDERS: PCP Family Medicine; Visit Provider Family Medicine | DX: Z51.81 Encounter for therapeutic drug level monitoring (principal); O24.419 Gestational diabetes mellitus in pregnancy, unspecified control; D64.9 Anemia, unspecified | CPT/HCPCS: 82951; 85025 ==